=== PATIENT | female | born 1940 | race Native Hawaiian/Other Pacific Islander ===

== ENCOUNTER 2017-03-06 07:44 | Emergency (ER) | payer MEDICARE, MEDICAID ==
[2017-03-06 08:01] VITALS: O2SAT 97
[2017-03-06] MEDS ORDERED: Dexamethasone 4 mg/1 ml IM STA (09:03)
[2017-03-06] MEDS ORDERED: Dexamethasone 4 mg/1 ml ONE (09:16)
--- NOTE | 2017-03-06 09:43 | C.PDOC ---
History Of Present Illness 76-year-old female, presents to the emergency department with complaints of joint pain. Patient states she has been experiencing pain in B/L knees for many years, but over the past three days, the pain has worsened, and associated with swelling. She also notes swelling and pain in her hands, elbows and shoulders. Additionally, she states that it has become very difficult for her to walk, resulting in her coming to the ED for evaluation. Denies chest pain, nausea/ vomiting, shortness of breath, or any other associated symptoms. No other complaints at this time. Time Seen by Provider: 03/06/17 08:11 Chief Complaint (Nursing): Upper Extremity Problem/Injury History Per: Patient History/Exam Limitations: no limitations Onset/Duration Of Symptoms: Days Current Symptoms Are (Timing): Still Present Severity: Moderate Past Medical History Reviewed: Historical Data, Nursing Documentation, Vital Signs Vital Signs: Last Vital Signs Temp 98.4 F 03/06/17 10:50 Pulse 79 03/06/17 10:50 Resp 18 03/06/17 10:50 BP 127/77 03/06/17 10:50 Pulse Ox 97 03/06/17 10:50 - Medical History PMH: Arthritis, Diabetes, HTN, Hypercholesterolemia Denies: Pulmonary Embolism, Chronic Kidney Disease, Sleep Apnea - [facility] Procedures ESOPHAGOGASTRODUODENOSCOPY [EGD] W/CLOSED BIOPSY (01/17/00) Family History: States: No Known Family Hx - Social History Hx Alcohol Use: No Hx Substance Use: No - Immunization History Hx Tetanus Toxoid Vaccination: No Hx Influenza Vaccination: No Hx Pneumococcal Vaccination: No Review Of Systems Except As Marked, All Systems Reviewed And Found Negative. Constitutional: Positive for: Other (pain to knees, hands and right elbow). Negative for: Fever Cardiovascular: Negative for: Chest Pain Respiratory: Negative for: Shortness of Breath Gastrointestinal: Negative for: Nausea, Vomiting Neurological: Negative for: Weakness, Numbness, Headache, Dizziness Physical Exam - Physical Exam Appears: Non-toxic, No Acute Distress, Other (moderate pain) Skin: Warm, Dry Head: Atraumatic, Normacephalic Eye(s): bilateral: Normal Inspection, PERRL, EOMI Nose: Normal Oral Mucosa: Moist Neck: Normal ROM, Supple Chest: Symmetrical, No Tenderness Cardiovascular: Rhythm Regular, No Friction Rub, No Murmur Respiratory: Normal Breath Sounds, No Accessory Muscle Use, No Rales, No Rhonchi , No Wheezing Gastrointestinal/Abdominal: Soft, No Tenderness Extremity: No Tenderness, Capillary Refill (< 2 sec), Other (B/L knees: moderate swelling. No rashes, deformity or erythema. No warmth. Minimal swelling to right elbow. B/L hands: w/ swelling, and tenderness. No warmth or deformity to second and third mcp joints.) Pulses: Left Radial: Normal, Right Radial: Normal, Left Dorsalis Pedis: Normal, Right Dorsalis Pedis: Normal Neurological/Psych: Oriented x3, Normal Speech, Normal Motor, Normal Sensation ED Course And Treatment O2 Sat by Pulse Oximetry: 97 (on RA) Pulse Ox Interpretation: Normal Medical Decision Making Medical Decision Making: Plan * Decadron, Tylenol and Toradol * Reassess and Disposition On re-exam, the patient reports improvement of pain but has diffculty walking secondary to the pain. physical therapy eval was performed who states that the patient is ambulatory with a walker and is safe for discharge. Rx for walker was given. Disposition - Disposition Referrals: Maday Quevedo MD [Staff Provider] - Disposition: HOME/ ROUTINE Disposition Time: 10:31 Condition: GOOD Additional Instructions: Follow up with the medical doctor within 1-2 days, Return if worsened. Prescriptions: Acetaminophen [Tylenol] 325 mg PO Q6 PRN #30 tab PRN Reason: Pain, Mild (1-3) Naproxen [Naprosyn] 500 mg PO BID #20 tab traMADol [Ultram] 25 mg PO TID PRN #15 tab PRN Reason: Pain, Moderate (4-7) Walker [Rolling Walker] 1 dev XX PRN PRN #1 dev PRN Reason: walking Instructions: Arthritis (ED) - Clinical Impression Clinical Impression: Joint pain, Arthritis - Scribe Statement The provider has reviewed the documentation as recorded by the Scribe (Juanjose Ryder) All medical record entries made by the Scribe were at my direction and personally dictated by me. I have reviewed the chart and agree that the record accurately reflects my personal performance of the history, physical exam, medical decision making, and the department course for this patient. I have also personally directed, reviewed, and agree with the discharge instructions and disposition.
[2017-03-06 10:50] VITALS: BP 127/77; PULSE 79; RESP 18; TEMP 98.4
== END 2017-03-06 11:45 | disposition home or self-care (01) ==
LOC: C.ER 07:44
DX: M17.0 Bilateral primary osteoarthritis of knee (principal)
CPT/HCPCS: 96372; 97116; 97161; 99283; G8978; G8979; G8980; J1100; J1885

== ENCOUNTER 2017-03-30 13:36 | Inpatient (IN) | payer MEDICARE, MEDICAID ==
[2017-03-30 13:46] VITALS: RESP 20
[2017-03-30 13:51] VITALS: BMI 26.5
[2017-03-30 15:28] LABS: BASO % 0.4 % (0.0-2.0); EOS # 0.3 K/uL (0.0-0.7); EOS % 3.7 % (0.0-4.0); HEMATOCRIT 35.5 % (34.0-47.0); LYMPH # 2.9 K/uL (1.0-4.3); LYMPH % 33.5 % (20.0-40.0); MEAN CELL VOLUME 88.2 fL (81.0-99.0); MEAN CORPUSCULAR HEMOGLOBIN 28.4 pg (27.0-31.0); MEAN CORPUSCULAR HGB CONC 32.2 g/dL (33.0-37.0); MONO # 0.7 K/uL (0.0-0.8); MONO % 7.8 % (0.0-10.0); NRBC % 0.1 % (0.0-2.0); RED CELL DISTRIBUTION WIDTH 13.4 % (11.5-14.5); WHITE BLOOD COUNT 8.5 K/uL (4.8-10.8)
[2017-03-30 15:36] LABS: CHLORIDE 101 mmol/L (98-107); POTASSIUM 4.2 mmol/L (3.6-5.2); SODIUM 134 mmol/L (132-148)
[2017-03-30 15:38] LABS: BILIRUBIN,TOTAL 0.5 mg/dL (0.2-1.3); CARBON DIOXIDE 25 mmol/L (22-30); GFR AFRICAN-AMERICAN > 60
[2017-03-30 15:39] LABS: ALKALINE PHOSPHATASE 61 U/L (38-126); ALT/SGPT 28 U/L (9-52); AST/SGOT 19 U/L (14-36); BLOOD UREA NITROGEN 13 mg/dL (7-17); CALCIUM 9.1 mg/dl (8.6-10.4); GLUCOSE,RANDOM 139 mg/dL (65-105); PHOSPHOROUS 4.6 mg/dL (2.5-4.5); TOTAL PROTEIN 6.5 g/dL (6.3-8.3)
[2017-03-30 15:40] LABS: MAGNESIUM 1.9 mg/dL (1.6-2.3)
[2017-03-30 15:45] LABS: INR 1.1
[2017-03-30 16:19] LABS: VENOUS BLOOD GAS BASE EXCESS 2.4 mmol/L (0.0-2.0); VENOUS BLOOD GAS PCO2 42 mmHg (40-60); VENOUS BLOOD PH 7.42 (7.32-7.43)
--- NOTE | 2017-03-30 16:37 | RAD ---
HISTORY: c/o generalized body aches COMPARISON: Chest x-ray performed 07/01/15 TECHNIQUE: Chest PA and lateral FINDINGS: LUNGS: 3 mm right upper lobe calcified granuloma. No focal consolidation. Please note that chest x-ray has limited sensitivity for the detection of pulmonary masses. PLEURA: No significant pleural effusion identified. No definite pneumothorax . CARDIOVASCULAR: Heart size appears within normal limits. Ectatic aorta. OSSEOUS STRUCTURES: Osseous demineralization. Degenerative changes. VISUALIZED UPPER ABDOMEN: Unremarkable. OTHER FINDINGS: None. IMPRESSION: Tiny calcified granuloma, right upper lobe.
--- NOTE | 2017-03-30 16:47 | RAD ---
PROCEDURE: Bilateral Knee Radiographs. HISTORY: c/o bilat knee pain COMPARISON: None. FINDINGS: BONES: Right Knee: Diffuse osteophytosis. No fracture. Left Knee: Diffuse osteophytosis. No fracture. JOINTS: Right Knee: osteoarthritis. Left knee: osteoarthritis. SOFT TISSUES: Right Knee: Normal. Left Knee: Normal. JOINT EFFUSION: Right Knee: Yes Left Knee: Yes OTHER FINDINGS: None. IMPRESSION: Tricompartmental joint space narrowing in each knee. Findings are most pronounced in the right knee. The right medial femoral tibial and right patellofemoral joint space narrowing osteophytosis is most pronounced. Bilateral suprapatellar joint effusions suggested. No fracture noted
[2017-03-30] MEDS: Sodium Chloride 0.9% 1,000 ML IV ONE ×2 (17:15→18:05)
[2017-03-30 17:27] LABS: RBC URINE 1 /hpf (0-3); TRANSITIONAL EPITHIAL < 1 /hpf (0-3); URINE BACTERIA OCC (<OCC); URINE BILIRUBIN NEGATIVE (NEGATIVE); URINE BLOOD NEGATIVE (NEGATIVE); URINE COLOR Yellow (YELLOW); URINE GLUCOSE (UA) 1+ mg/dL (Normal); URINE KETONE NEGATIVE (NEGATIVE); URINE PROTEIN NEGATIVE (NEGATIVE); URINE UROBILINOGEN NORMAL mg/dL (0.2-1.0); WBC URINE 7 /hpf (0-5)
--- NOTE | 2017-03-30 17:28 | C.PDOC ---
History Of Present Illness Patient is a 76 y/o female, whose PMHx includes diabetes, HTN, RA, and hypercholestrolemia, that is sent to the ED by Dr. Quevedo for evaluation of body aches, and pain to bilateral wrist, arm, elbow, and knee for the last month. Patient states her knees feel warm to touch. Notes that she cannot walk past 3 to 4 steps without significant pain. States her symptoms are worse with standing , walking, and sitting. Patient is failing outpatient treatment of her pain for her arthritis. Otherwise, denies any chest pain, shortness of breath, n/v/d, abdominal pain, fever, chills, or any other associated symptoms at this time. Time Seen by Provider: 03/30/17 14:10 Chief Complaint (Nursing): Medical Clearance History Per: Patient History/Exam Limitations: no limitations Onset/Duration Of Symptoms: Days (1 month) Current Symptoms Are (Timing): Still Present Recent travel outside of the [place]: No Additional History Per: Patient Past Medical History Reviewed: Historical Data, Nursing Documentation, Vital Signs Vital Signs: Last Vital Signs Temp 97.8 F 04/03/17 07:53 Pulse 73 04/03/17 12:51 Resp 20 04/03/17 07:53 BP 110/69 04/03/17 07:53 Pulse Ox 95 04/03/17 07:53 - Medical History PMH: Arthritis, Diabetes, HTN, Hypercholesterolemia, Rheumatoid Arthritis - [facility] Procedures ESOPHAGOGASTRODUODENOSCOPY [EGD] W/CLOSED BIOPSY (01/17/00) Family History: States: Other Other Family History: Mother and sister with history of stomach cancer - Social History Hx Tobacco Use: No Hx Alcohol Use: No Hx Substance Use: No - Immunization History Hx Tetanus Toxoid Vaccination: No Hx Influenza Vaccination: No Hx Pneumococcal Vaccination: No Review Of Systems Except As Marked, All Systems Reviewed And Found Negative. Constitutional: Positive for: Other (body pains). Negative for: Fever, Chills Cardiovascular: Negative for: Chest Pain, Palpitations, Light Headedness Respiratory: Negative for: Shortness of Breath Gastrointestinal: Negative for: Nausea, Vomiting, Abdominal Pain Musculoskeletal: Positive for: Arm Pain (b/l arm, elbow pain), Hand Pain (b/l wrist pain), Leg Pain (b/l knee pain). Negative for: Neck Pain, Shoulder Pain, Back Pain Skin: Negative for: Rash Neurological: Negative for: Weakness, Numbness, Headache, Dizziness Physical Exam - Physical Exam Appears: Non-toxic, No Acute Distress Skin: Normal Color, Warm, Dry, No Rash Head: Atraumatic, Normacephalic Eye(s): bilateral: Normal Inspection Nose: Normal Oral Mucosa: Moist Lips: Normal Appearing Neck: Normal ROM, Supple Chest: Symmetrical Cardiovascular: Rhythm Regular, No Murmur Respiratory: Normal Breath Sounds, No Accessory Muscle Use, No Rales, No Rhonchi , No Wheezing Gastrointestinal/Abdominal: Normal Exam, Soft, No Tenderness Back: Normal Inspection, No Paraspinal Tenderness Extremity: No Normal ROM (pain with ROM of b/l knee, wrist, arm, elbow), Tenderness (b/l knee, arm, wrist, and elbow), No Pedal Edema, Capillary Refill ( <2 sec.), No Deformity, No Swelling (no redness, swelling, or warmth to joints) Extremity: Bilateral: Atraumatic Pulses: Left Radial: Normal, Right Radial: Normal Neurological/Psych: Oriented x3, Normal Speech, Normal Cognition, Normal Motor, Normal Sensation ED Course And Treatment - Laboratory Results Result Diagrams: 04/02/17 08:13 03/31/17 07:09 O2 Sat by Pulse Oximetry: 99 (on RA) Pulse Ox Interpretation: Normal Medical Decision Making Medical Decision Making: Initial Impression: Rheumatoid Arthritis with significant pain Initial Plan: Will give pain medication and check labs Progress Note: Pt still in pain. I discussed the case with Dr. Quevedo--recommends hospitalization (Observation) under his service due to the intractable pain Disposition - Disposition Disposition: HOSPITALIZED Disposition Time: 17:26 Condition: FAIR - Clinical Impression Clinical Impression: Rheumatoid arthritis flare, Intractable pain - Scribe Statement The provider has reviewed the documentation as recorded by the Laurenibmika Hernandez All medical record entries made by the Laurenibmika were at my direction and personally dictated by me. I have reviewed the chart and agree that the record accurately reflects my personal performance of the history, physical exam, medical decision making, and the department course for this patient. I have also personally directed, reviewed, and agree with the discharge instructions and disposition. Decision To Admit - Pt Status Changed To: Hospital Disposition Of: Observation - . Bed Request Type: Regular Admitting Physician: Maday Quevedo Patient Diagnosis: Rheumatoid arthritis flare, Intractable pain
[2017-03-30 17:31] LABS: URINE LEUKOCYTE ESTERASE 1+ Leu/uL (Negative)
[2017-03-30] MEDS ORDERED: Sodium Chloride 0.9% 1,000 ML ONE (17:51)
--- NOTE | 2017-03-30 18:00 | CP.PCM.HP ---
History of Present Illness - History of Present Illness History of Present Illness: A 76 year old female with history of rheumatoid arthritis, Diabetes, HTN, Hypercholesterolemia came for severe general body ache and polyarthralgia, especially knee and shoulder joints. She is normally going to a day care center, however, recently she was unable to go out because of the pain. She could not even walk for more than two steps. She had recently MRI's of knees at a pain clinic. The pain was so unbearable, and she could not go out, so she came to ER. She denies fever, vomiting, nausea. shortness of breath. Present on Admission - Present on Admission Any Indicators Present on Admission: No History of DVT/PE: No History of Uncontrolled Diabetes: No Urinary Catheter: No Decubitus Ulcer Present: No Review of Systems - Constitutional Constitutional: Weakness. absent: Anorexia, Chills - Cardiovascular Cardiovascular: absent: Chest Pain, Chest Pain at Rest, Claudication, Diaphoresis - Respiratory Respiratory: absent: Cough, Dyspnea - Gastrointestinal Gastrointestinal: absent: Abdominal Pain, Melena, Nausea - Genitourinary Genitourinary: absent: Change in Urinary Stream, Difficulty Urinating - Musculoskeletal Musculoskeletal: Arthralgias (pain on both arms, elbows, wrists, knees, no back pain), Back Pain, Muscle Cramps - Integumentary Integumentary: absent: Swelling Past Patient History - Infectious Disease Hx of Infectious Diseases: None - Tetanus Immunizations Tetanus Immunization: Unknown - Past Medical History & Family History Past Medical History?: Yes - Past Social History Smoking Status: Never Smoked Chewing Tobacco Use: No Cigar Use: No Alcohol: None Drugs: Denies Home Situation {Lives}: Alone Domestic Violence: Negative - CARDIAC Hx Hypercholesterolemia: Yes Hx Hypertension: Yes - PULMONARY Hx Pulmonary Embolism: No Hx Sleep Apnea: No - NEUROLOGICAL Hx Neurological Disorder: No - HEENT Hx HEENT Problems: No - RENAL Hx Chronic Kidney Disease: No - ENDOCRINE/METABOLIC Hx Endocrine Disorders: Yes Hx Diabetes Mellitus Type 2: Yes - HEMATOLOGICAL/ONCOLOGICAL Hx Blood Disorders: No - INTEGUMENTARY Hx Dermatological Problems: No - MUSCULOSKELETAL/RHEUMATOLOGICAL Hx Arthritis: Yes - GASTROINTESTINAL Hx Gastrointestinal Disorders: No - GENITOURINARY/GYNECOLOGICAL Hx Genitourinary Disorders: No - PSYCHIATRIC Hx Substance Use: No - SURGICAL HISTORY Hx Surgeries: No - ANESTHESIA Hx Anesthesia: No Hx Anesthesia Reactions: No Meds Allergies/Adverse Reactions: Allergies Allergy/AdvReac Type Severity Reaction Status Date / Time No Known Allergies Allergy Verified 03/30/17 13:50 Physical Exam - Head Exam Head Exam: NORMAL INSPECTION - Neck Exam Neck exam: Positive for: Normal Inspection - Respiratory Exam Respiratory Exam: Clear to Auscultation Bilateral, NORMAL BREATHING PATTERN - Cardiovascular Exam Cardiovascular Exam: REGULAR RHYTHM, +S1, +S2. absent: Systolic Murmur - GI/Abdominal Exam GI & Abdominal Exam: Normal Bowel Sounds. absent: Guarding, Hypoactive Bowel Sounds, Organomegaly Results - Vital Signs Recent Vital Signs: Last Vital Signs Temp 98 F 03/30/17 13:43 Pulse 74 03/30/17 13:43 Resp 20 03/30/17 13:43 BP 117/81 03/30/17 13:43 Pulse Ox 99 03/30/17 17:28 - Labs Result Diagrams: 03/30/17 15:22 03/31/17 07:09 Labs: Laboratory Results - last 24 hr 03/30/17 17:14 Urine Color Yellow Urine Clarity Clear Urine pH 6.0 Ur Specific [place] 1.010 Urine Protein Negative Urine Glucose (UA) 1+ Urine Ketones Negative Urine Blood Negative Urine Nitrate Negative Urine Bilirubin Negative Urine Urobilinogen Normal Ur Leukocyte Esterase 1+ H Urine WBC (Auto) 7 H Urine RBC (Auto) 1 Ur Squamous Epith Cells < 1 Ur Transition Epith Cell < 1 Urine Bacteria Occ H Assessment & Plan - Assessment and Plan (Free Text) Assessment: A 76 year old female with history of rheumatoid arthritis, HTN, DM, elevated cholesterol came with severe joint pain on knees, shoulders. RA flare up intractable pain syndrome Plan: iv fluid rest iv steroids DVT prophylaxis Rheumatology consult Diabetic care PT evaluation - Date & Time Date: 03/30/17 Time: 18:06
[2017-03-30] MEDS ORDERED: Sodium Chloride 0.9% 1,000 ML IV ONE (19:36)
[2017-03-30] MEDS ORDERED: Albuterol HFA 90 mcg/actuation (8 g) INH PRN (19:37)
[2017-03-30] MEDS: (Novolog) Insulin Aspart, Recombinant 100 u/ml 10 ml vial SC SCH (22:11)
[2017-03-31 07:36] LABS: CHLORIDE 102 mmol/L (98-107)
[2017-03-31 07:37] LABS: SODIUM 133 mmol/L (132-148)
[2017-03-31 07:39] LABS: ALB/GLOB RATIO 0.9 (1.0-2.1); ALKALINE PHOSPHATASE 59 U/L (38-126); ALT/SGPT 26 U/L (9-52); AST/SGOT 19 U/L (14-36); BILIRUBIN,TOTAL 0.5 mg/dL (0.2-1.3); BLOOD UREA NITROGEN 16 mg/dL (7-17); CARBON DIOXIDE 22 mmol/L (22-30); CHOLESTEROL 133 mg/dL (0-199); GFR AFRICAN-AMERICAN > 60; GLUCOSE,RANDOM 293 mg/dL (65-105); TOTAL PROTEIN 6.1 g/dL (6.3-8.3)
[2017-03-31 07:40] LABS: CALCIUM 8.5 mg/dl (8.6-10.4)
--- NOTE | 2017-03-31 07:50 | CP.PCM.PN ---
Subjective - Date & Time of Evaluation Date of Evaluation: 03/31/17 Time of Evaluation: 07:46 - Subjective Subjective: pain on shoulders more on right side pain on knees can not make a fist of both hands Objective - Vital Signs/Intake and Output Vital Signs (last 24 hours): Temp Pulse Resp BP Pulse Ox 97.7 F 91 H 20 115/74 96 03/31/17 07:29 03/31/17 07:29 03/31/17 07:29 03/31/17 07:29 03/31/17 07:29 Intake and Output: 03/31/17 03/31/17 06:59 18:59 Intake Total 640 Balance 640 - Medications Medications: Current Medications Acetaminophen (Tylenol 325mg Tab) 650 mg PO Q6 PRN PRN Reason: Pain, moderate (4-7) Albuterol (Ventolin Hfa 90 Mcg/Actuation (8 G)) 1 puff INH RQ6 PRN PRN Reason: Wheezing Folic Acid (Folic Acid) 1 mg PO DAILY [facility] Heparin Sodium (Porcine) (Heparin) 5,000 units SC Q12 [facility] Last Admin: 03/30/17 22:10 Dose: 5,000 units Insulin Aspart (Novolog) 0 unit SC ACHS [facility] PRN Reason: Protocol Last Admin: 03/30/17 22:11 Dose: Not Given Ketorolac Tromethamine (Toradol) 15 mg IVP Q8 PRN PRN Reason: Pain, severe (8-10) Losartan Potassium (Cozaar) 50 mg PO DAILY [facility] Metformin HCl (Glucophage) 500 mg PO BIDCC [facility] Methotrexate (Methotrexate) 2.5 mg PO QWK [facility] Methylprednisolone (Solu-Medrol) 80 mg IV Q8 [facility] Last Admin: 03/31/17 05:20 Dose: 80 mg Pantoprazole Sodium (Protonix Ec Tab) 40 mg PO DAILY [facility] Pneumococcal Polyvalent Vaccine (Pneumovax 23 Vaccine) 0.5 ml IM .ONCE ONE Stop: 03/31/17 10:01 Sitagliptin Phosphate (Januvia) 50 mg PO DAILY [facility] - Labs Labs: 03/31/17 07:09 PT 12.0 SECONDS (9.7-12.2) 03/30/17 15:22 INR 1.1 03/30/17 15:22 APTT 33 SECONDS (21-34) 03/30/17 15:22 - Head Exam Head Exam: NORMAL INSPECTION - Neck Exam Neck Exam: Normal Inspection - Respiratory Exam Respiratory Exam: NORMAL BREATHING PATTERN - Cardiovascular Exam Cardiovascular Exam: REGULAR RHYTHM. absent: Tachycardia - GI/Abdominal Exam GI & Abdominal Exam: Soft, Normal Bowel Sounds. absent: Tenderness - Extremities Exam Extremities Exam: Full ROM, Joint Swelling (knee joints) - Skin Skin Exam: Normal Color Assessment and Plan - Assessment and Plan (Free Text) Assessment: A 76 year old female who has a history of RA, knee OA, DM, HTN came for severe joint pain for one month. She was unable to walk for two steps. She has been going to a pain management clinic and had an acupuncture DM on steroid iv toradol prn for pain control high ESR and CRP Plan: continue iv steroids insulin sliding scale rheumatology consult X-rays of shoulders and hands
[2017-03-31] MEDS: Pantoprazole 40 mg EC Tab PO SCH (09:53)
[2017-03-31] MEDS: (Novolog) Insulin Aspart, Recombinant 100 u/ml 10 ml vial SC SCH ×4 (09:54→21:36)
[2017-03-31] MEDS ORDERED: Pneumococcal 23-Valent Vaccine IM ONE (10:00)
--- NOTE | 2017-03-31 11:41 | RAD ---
PROCEDURE: Radiographs of both shoulders HISTORY: shoulder pain COMPARISON: No prior. FINDINGS: BONES: Right shoulder: Normal. No fracture. Left shoulder: Normal. No fracture. JOINTS: Right shoulder: Normal glenohumeral articulation. Minimal acromioclavicular degenerative arthritis. Left shoulder: Normal glenohumeral articulation. Minimal acromioclavicular degenerative arthritis. Small round smooth corticated ossific density adjacent to superior aspect of the distal left clavicle, uncertain significance. SOFT TISSUES: Right shoulder: Grossly unremarkable. Right shoulder: Grossly unremarkable. OTHER FINDINGS: None. IMPRESSION: No fracture. Minimal bilateral acromioclavicular degenerative arthritis.
--- NOTE | 2017-03-31 11:44 | RAD ---
PROCEDURE: Bilateral hand radiographs. HISTORY: RA evaluation COMPARISON: None. FINDINGS: BONES: Right Hand: Normal. No osteoarthritic changes. Left Hand: Normal. No osteoarthritic changes. JOINTS: Right Hand: Minimal marginal erosion radial aspect distal end right 2nd middle phalanx. No other articular erosions are appreciated. Remaining joint spaces and articular surfaces preserved. Left Hand: Normal. SOFT TISSUES: Right Hand: Normal. Left Hand: Normal. OTHER FINDINGS: None. IMPRESSION: Minimal nonspecific articular erosion at the radial distal aspect right 2nd middle phalanx. Remainder of the examination unremarkable.
--- NOTE | 2017-03-31 12:52 | CARD ---
APPROVED REPORT EKG Measurement Heart [id number] <Conclusion> Normal sinus rhythm Normal ECG
[2017-04-01] MEDS: (Novolog) Insulin Aspart, Recombinant 100 u/ml 10 ml vial SC SCH ×4 (07:30→21:50)
[2017-04-01 09:18] LABS: AST/SGOT 25 U/L (14-36)
[2017-04-01] MEDS: Pantoprazole 40 mg EC Tab PO SCH (09:35)
[2017-04-01] MEDS ORDERED: MethylPREDNISolone 40 mg Vial IVP STA (15:56)
--- NOTE | 2017-04-01 15:56 | CP.PCM.PN ---
Subjective - Date & Time of Evaluation Date of Evaluation: 04/01/17 Time of Evaluation: 15:53 - Subjective Subjective: knee pain lessened shoulder pain less still unable to walk Objective - Vital Signs/Intake and Output Vital Signs (last 24 hours): Temp Pulse Resp BP Pulse Ox 98.8 F 79 20 106/64 96 04/01/17 07:52 04/01/17 07:52 04/01/17 07:52 04/01/17 07:52 04/01/17 07:52 Intake and Output: 04/01/17 04/01/17 06:59 18:59 Intake Total 300 Balance 300 - Medications Medications: Current Medications Acetaminophen (Tylenol 325mg Tab) 650 mg PO Q6 PRN PRN Reason: Pain, moderate (4-7) Albuterol (Ventolin Hfa 90 Mcg/Actuation (8 G)) 1 puff INH RQ6 PRN PRN Reason: Wheezing Folic Acid (Folic Acid) 1 mg PO DAILY [facility] Last Admin: 04/01/17 09:35 Dose: 1 mg Heparin Sodium (Porcine) (Heparin) 5,000 units SC Q12 [facility] Last Admin: 04/01/17 09:36 Dose: 5,000 units Insulin Aspart (Novolog) 0 unit SC ACHS [facility] PRN Reason: Protocol Last Admin: 04/01/17 11:37 Dose: 6 unit Ketorolac Tromethamine (Toradol) 15 mg IVP Q8 PRN PRN Reason: Pain, severe (8-10) Losartan Potassium (Cozaar) 50 mg PO DAILY [facility] Last Admin: 04/01/17 09:36 Dose: 50 mg Metformin HCl (Glucophage) 500 mg PO BIDCC [facility] Last Admin: 04/01/17 08:00 Dose: 500 mg Methotrexate (Methotrexate) 15 mg PO QWK [facility] Last Admin: 04/01/17 09:37 Dose: 15 mg Methylprednisolone (Solu-Medrol) 80 mg IV Q8 [facility] Last Admin: 04/01/17 14:19 Dose: 80 mg Pantoprazole Sodium (Protonix Ec Tab) 40 mg PO DAILY [facility] Last Admin: 04/01/17 09:35 Dose: 40 mg Sitagliptin Phosphate (Januvia) 50 mg PO DAILY [facility] Last Admin: 04/01/17 09:36 Dose: 50 mg - Labs Labs: PT 12.0 SECONDS (9.7-12.2) 03/30/17 15:22 INR 1.1 03/30/17 15:22 APTT 33 SECONDS (21-34) 03/30/17 15:22 - Constitutional Appears: Non-toxic - Neck Exam Neck Exam: Normal Inspection - Respiratory Exam Respiratory Exam: NORMAL BREATHING PATTERN - Cardiovascular Exam Cardiovascular Exam: REGULAR RHYTHM. absent: Murmur - Extremities Exam Extremities Exam: Joint Swelling (knee joints, not red) Assessment and Plan - Assessment and Plan (Free Text) Assessment: 76 year old female with history of DM, HTN, RA on methotrexate came for increased pain on knees, inability to move for a month. Rheumatoid arthritis flare up. X-ray of shoulder: unremarkable X-ray of hands: rt 3rd MP joint, radial side erosion Plan: taper iv steroids. 80 mg solumedrol from every 8 to every 12 hours. glucose control rheumatology consult physical therapy follow up labs
[2017-04-01] MEDS: Oxycodone/Acetaminophen 5/325 mg Tab PO PRN (18:44)
[2017-04-01] MEDS ORDERED: MethylPREDNISolone 40 mg Vial IVP SCH (22:00)
--- NOTE | 2017-04-01 22:15 | CP.PCM.CON ---
History of Present Illness - History of Present Illness History of Present Illness: 76 year old female with severe knee pain and stiffness admitted thru the ER at [facility]. Patient has suffered from long standing rheumatoid arthritis, diabetes mellitus, hyperlipidemia and ASHD. Patient is presently on metothrexate. Ms Meza was examined and a medical history was obtained. Lab studies and a quantiferon gold exam requested. Review of Systems - Review of Systems Systems not reviewed;Unavailable: Other (knee pain) - Constitutional Constitutional: Fatigue - EENT Eyes: Dry Eye - Menstruation Menstruation: Post Menopausal - Musculoskeletal Musculoskeletal: Arthralgias - Integumentary Integumentary: Change in Hair - Psychiatric Psychiatric: Depression Past Patient History - Infectious Disease Hx of Infectious Diseases: None - Tetanus Immunizations Tetanus Immunization: Unknown - Past Medical History & Family History Past Medical History?: Yes - Past Social History Smoking Status: Never Smoked Chewing Tobacco Use: No Cigar Use: No Alcohol: None Drugs: Denies Home Situation {Lives}: Alone Domestic Violence: Negative - CARDIAC Hx Hypertension: Yes - PULMONARY Hx Pulmonary Embolism: No Hx Sleep Apnea: No - NEUROLOGICAL Hx Neurological Disorder: No - HEENT Hx HEENT Problems: No - RENAL Hx Chronic Kidney Disease: No - ENDOCRINE/METABOLIC Hx Diabetes Mellitus Type 2: Yes - HEMATOLOGICAL/ONCOLOGICAL Hx Blood Disorders: No - INTEGUMENTARY Hx Dermatological Problems: No - MUSCULOSKELETAL/RHEUMATOLOGICAL Hx Arthritis: Yes (BACK) Hx Rheumatoid Arthritis: Yes (SH, KNEES) - GASTROINTESTINAL Hx Gastrointestinal Disorders: No - GENITOURINARY/GYNECOLOGICAL Hx Genitourinary Disorders: No - PSYCHIATRIC Hx Substance Use: No - SURGICAL HISTORY Hx Surgeries: No - ANESTHESIA Hx Anesthesia: No Hx Anesthesia Reactions: No Meds Allergies/Adverse Reactions: Allergies Allergy/AdvReac Type Severity Reaction Status Date / Time No Known Allergies Allergy Verified 03/30/17 13:50 - Medications Medications: Current Medications Acetaminophen (Tylenol 325mg Tab) 650 mg PO Q6 PRN PRN Reason: Pain, moderate (4-7) Albuterol (Ventolin Hfa 90 Mcg/Actuation (8 G)) 1 puff INH RQ6 PRN PRN Reason: Wheezing Folic Acid (Folic Acid) 1 mg PO DAILY [facility] Last Admin: 04/01/17 09:35 Dose: 1 mg Heparin Sodium (Porcine) (Heparin) 5,000 units SC Q12 [facility] Last Admin: 04/01/17 21:50 Dose: 5,000 units Insulin Aspart (Novolog) 0 unit SC ACHS [facility] PRN Reason: Protocol Last Admin: 04/01/17 21:50 Dose: 3 unit Losartan Potassium (Cozaar) 50 mg PO DAILY [facility] Last Admin: 04/01/17 09:36 Dose: 50 mg Metformin HCl (Glucophage) 500 mg PO BIDCC [facility] Last Admin: 04/01/17 17:00 Dose: 500 mg Methotrexate (Methotrexate) 15 mg PO QWK [facility] Last Admin: 04/01/17 09:37 Dose: 15 mg Methylprednisolone (Solu-Medrol) 80 mg IVP Q12 [facility] Last Admin: 04/01/17 21:51 Dose: 80 mg Oxycodone/Acetaminophen (Percocet 5/325 Mg Tab) 1 tab PO Q4H PRN PRN Reason: Pain, moderate (4-7) Stop: 04/04/17 16:14 Last Admin: 04/01/17 18:44 Dose: 1 tab Pantoprazole Sodium (Protonix Ec Tab) 40 mg PO DAILY [facility] Last Admin: 04/01/17 09:35 Dose: 40 mg Sitagliptin Phosphate (Januvia) 50 mg PO DAILY [facility] Last Admin: 04/01/17 09:36 Dose: 50 mg Physical Exam - Constitutional Appears: Chronically Ill - Head Exam Head Exam: NORMOCEPHALIC - Eye Exam Eye Exam: Normal appearance Pupil Exam: NORMAL ACCOMODATION - ENT Exam ENT Exam: Normal Exam - Neck Exam Neck exam: Positive for: Normal Inspection - Respiratory Exam Respiratory Exam: NORMAL BREATHING PATTERN - Cardiovascular Exam Cardiovascular Exam: REGULAR RHYTHM - GI/Abdominal Exam GI & Abdominal Exam: Normal Bowel Sounds - Rectal Exam Rectal Exam: Deferred - Exam External exam: NORMAL EXTERNAL EXAM - Extremities Exam Extremities exam: Positive for: tenderness - Back Exam Back exam: NORMAL INSPECTION - Neurological Exam Neurological exam: Oriented x3 - Psychiatric Exam Psychiatric exam: Depressed - Skin Skin Exam: Dry Results - Vital Signs Recent Vital Signs: Last Vital Signs Temp 97.5 F L 04/01/17 16:00 Pulse 78 04/01/17 16:00 Resp 20 04/01/17 16:00 BP 123/74 04/01/17 16:00 Pulse Ox 97 04/01/17 16:00 - Labs Result Diagrams: 03/30/17 15:22 03/31/17 07:09 Labs: Laboratory Results - last 24 hr 04/01/17 04/01/17 16:32 21:19 POC Glucose (mg/dL) 251 H 363 H Assessment & Plan (1) Diabetes mellitus Status: Acute (2) Hyperlipidemia Status: Acute (3) Rheumatoid arthritis flare Status: Acute
[2017-04-02 08:21] LABS: HEMATOCRIT 31.5 % (34.0-47.0); LYMPH # 1.5 K/uL (1.0-4.3); LYMPH % 13.3 % (20.0-40.0); MEAN CELL VOLUME 87.2 fL (81.0-99.0); MEAN CORPUSCULAR HEMOGLOBIN 29.3 pg (27.0-31.0); MEAN CORPUSCULAR HGB CONC 33.6 g/dL (33.0-37.0); MEAN PLATELET VOLUME 7.2 fL (7.2-11.7); MONO # 0.2 K/uL (0.0-0.8); MONO % 2.2 % (0.0-10.0); RED CELL DISTRIBUTION WIDTH 13.1 % (11.5-14.5); WHITE BLOOD COUNT 11.1 K/uL (4.8-10.8)
[2017-04-02] MEDS: (Novolog) Insulin Aspart, Recombinant 100 u/ml 10 ml vial SC SCH ×4 (08:30→22:44)
[2017-04-02] MEDS: Pantoprazole 40 mg EC Tab PO SCH (10:01)
[2017-04-02] MEDS: MethylPREDNISolone 40 mg Vial IVP SCH (10:01)
--- NOTE | 2017-04-02 10:31 | RAD ---
PROCEDURE: Pelvis bilateral hips 04/01/2017. HISTORY: Unable to walk COMPARISON: No prior study available comparison. FINDINGS: The current study reveals no evidence of acute displaced fracture nor dislocation. Both femoral heads are appropriately located within the respective acetabula. Joint spaces are relatively preserved without significant osteoarthritis. SI joints are intact and patent. . There may also be some vacuum phenomena within both SI joints. Mild degenerative spondylosis lower lumbosacral spine. . Impression: No acute fracture seen. .
--- NOTE | 2017-04-02 12:40 | CP.PCM.PN ---
Subjective - Date & Time of Evaluation Date of Evaluation: 04/02/17 Time of Evaluation: 12:37 - Subjective Subjective: less pain on knee joint and finger joint high glucose Objective - Vital Signs/Intake and Output Vital Signs (last 24 hours): Temp Pulse Resp BP Pulse Ox 97.6 F 73 20 125/75 97 04/02/17 07:37 04/02/17 07:37 04/02/17 07:37 04/02/17 07:37 04/02/17 07:37 - Medications Medications: Current Medications Acetaminophen (Tylenol 325mg Tab) 650 mg PO Q6 PRN PRN Reason: Pain, moderate (4-7) Albuterol (Ventolin Hfa 90 Mcg/Actuation (8 G)) 1 puff INH RQ6 PRN PRN Reason: Wheezing Folic Acid (Folic Acid) 1 mg PO DAILY [facility] Last Admin: 04/02/17 10:00 Dose: 1 mg Heparin Sodium (Porcine) (Heparin) 5,000 units SC Q12 [facility] Last Admin: 04/02/17 10:01 Dose: 5,000 units Insulin Aspart (Novolog) 0 unit SC ACHS [facility] PRN Reason: Protocol Last Admin: 04/02/17 12:28 Dose: 4 unit Losartan Potassium (Cozaar) 50 mg PO DAILY [facility] Last Admin: 04/02/17 10:02 Dose: 50 mg Metformin HCl (Glucophage) 500 mg PO BIDCC [facility] Last Admin: 04/02/17 08:40 Dose: 500 mg Methotrexate (Methotrexate) 15 mg PO QWK [facility] Last Admin: 04/01/17 09:37 Dose: 15 mg Methylprednisolone (Solu-Medrol) 80 mg IVP DAILY [facility] Last Admin: 04/02/17 10:01 Dose: 80 mg Oxycodone/Acetaminophen (Percocet 5/325 Mg Tab) 1 tab PO Q4H PRN PRN Reason: Pain, moderate (4-7) Stop: 04/04/17 16:14 Last Admin: 04/01/17 18:44 Dose: 1 tab Pantoprazole Sodium (Protonix Ec Tab) 40 mg PO DAILY [facility] Last Admin: 04/02/17 10:01 Dose: 40 mg Sitagliptin Phosphate (Januvia) 50 mg PO DAILY [facility] Last Admin: 04/02/17 10:01 Dose: 50 mg - Labs Labs: 04/02/17 08:13 PT 12.0 SECONDS (9.7-12.2) 03/30/17 15:22 INR 1.1 03/30/17 15:22 APTT 33 SECONDS (21-34) 03/30/17 15:22 - Constitutional Appears: Non-toxic - Respiratory Exam Respiratory Exam: NORMAL BREATHING PATTERN - Cardiovascular Exam Cardiovascular Exam: REGULAR RHYTHM. absent: Murmur - Extremities Exam Extremities Exam: Joint Swelling (knees) Assessment and Plan - Assessment and Plan (Free Text) Assessment: A 76 year old female DM, HTN rheumatoid arthritis flare up on iv steroid now Plan: follow up with rhematology taper iv steroid
--- NOTE | 2017-04-02 13:32 | CP.PCM.CON ---
History of Present Illness - History of Present Illness History of Present Illness: ID: 76 yo young appearing icelandic woman CC: severe bilateral knee pain and rstricted ROM L>r HPI- pt documented Rheumatoid arthritis presents with sever pain and rstricted ROM both knees L>R pt has been unavle to ambulate x last 1 month Pt is candidtae for TKR and we strongly recomment accomplishment of same dequan to prevent cotracture and oinjability to ambulate in the future Please refer to the admiting notes of Dr Betancur and Dr Bellamy Past Patient History - Infectious Disease Hx of Infectious Diseases: None - Tetanus Immunizations Tetanus Immunization: Unknown - Past Medical History & Family History Past Medical History?: Yes - Past Social History Smoking Status: Never Smoked Chewing Tobacco Use: No Cigar Use: No Alcohol: None Drugs: Denies Home Situation {Lives}: Alone Domestic Violence: Negative - CARDIAC Hx Hypertension: Yes - PULMONARY Hx Pulmonary Embolism: No Hx Sleep Apnea: No - NEUROLOGICAL Hx Neurological Disorder: No - HEENT Hx HEENT Problems: No - RENAL Hx Chronic Kidney Disease: No - ENDOCRINE/METABOLIC Hx Diabetes Mellitus Type 2: Yes - HEMATOLOGICAL/ONCOLOGICAL Hx Blood Disorders: No - INTEGUMENTARY Hx Dermatological Problems: No - MUSCULOSKELETAL/RHEUMATOLOGICAL Hx Arthritis: Yes (BACK) Hx Rheumatoid Arthritis: Yes (SH, KNEES) - GASTROINTESTINAL Hx Gastrointestinal Disorders: No - GENITOURINARY/GYNECOLOGICAL Hx Genitourinary Disorders: No - PSYCHIATRIC Hx Substance Use: No - SURGICAL HISTORY Hx Surgeries: No - ANESTHESIA Hx Anesthesia: No Hx Anesthesia Reactions: No Meds Allergies/Adverse Reactions: Allergies Allergy/AdvReac Type Severity Reaction Status Date / Time No Known Allergies Allergy Verified 03/30/17 13:50 - Medications Medications: Current Medications Acetaminophen (Tylenol 325mg Tab) 650 mg PO Q6 PRN PRN Reason: Pain, moderate (4-7) Albuterol (Ventolin Hfa 90 Mcg/Actuation (8 G)) 1 puff INH RQ6 PRN PRN Reason: Wheezing Folic Acid (Folic Acid) 1 mg PO DAILY [facility] Last Admin: 04/02/17 10:00 Dose: 1 mg Heparin Sodium (Porcine) (Heparin) 5,000 units SC Q12 [facility] Last Admin: 04/02/17 10:01 Dose: 5,000 units Insulin Aspart (Novolog) 0 unit SC ACHS [facility] PRN Reason: Protocol Last Admin: 04/02/17 12:28 Dose: 4 unit Losartan Potassium (Cozaar) 50 mg PO DAILY [facility] Last Admin: 04/02/17 10:02 Dose: 50 mg Metformin HCl (Glucophage) 500 mg PO BIDCC [facility] Last Admin: 04/02/17 08:40 Dose: 500 mg Methotrexate (Methotrexate) 15 mg PO QWK [facility] Last Admin: 04/01/17 09:37 Dose: 15 mg Methylprednisolone (Solu-Medrol) 80 mg IVP DAILY [facility] Last Admin: 04/02/17 10:01 Dose: 80 mg Oxycodone/Acetaminophen (Percocet 5/325 Mg Tab) 1 tab PO Q4H PRN PRN Reason: Pain, moderate (4-7) Stop: 04/04/17 16:14 Last Admin: 04/01/17 18:44 Dose: 1 tab Pantoprazole Sodium (Protonix Ec Tab) 40 mg PO DAILY [facility] Last Admin: 04/02/17 10:01 Dose: 40 mg Sitagliptin Phosphate (Januvia) 50 mg PO DAILY [facility] Last Admin: 04/02/17 10:01 Dose: 50 mg Physical Exam - Additional Findings Additional findings: Physical exam: sytemic exam- stigmata of Rheumatoid arthreitis Musculoskeletal: stance / gait- defrred pt unable to ambulayre 2nd to svere pain and rsticted ROM both knees L>R + bilateral effusion/+ tewnderness tricompartmentally ROM both hips restricted pts position at bedrest has pillows behind both knees ROM both hips restricted Results - Vital Signs Recent Vital Signs: Last Vital Signs Temp 97.6 F 04/02/17 07:37 Pulse 73 04/02/17 07:37 Resp 20 04/02/17 07:37 BP 125/75 04/02/17 07:37 Pulse Ox 97 04/02/17 07:37 - Labs Result Diagrams: 04/02/17 08:13 03/31/17 07:09 Labs: Laboratory Results - last 24 hr 04/01/17 04/01/17 04/02/17 16:32 21:19 07:09 WBC RBC Hgb Hct MCV MCH MCHC RDW Plt Count MPV Neut % (Auto) Lymph % (Auto) Simpson % (Auto) Eos % (Auto) Baso % (Auto) Neut # Lymph # Simpson # Eos # Baso # ESR POC Glucose (mg/dL) 251 H 363 H 312 H C-React Prot High Sens 04/02/17 04/02/17 04/02/17 08:13 08:13 11:22 WBC 11.1 H RBC 3.62 L Hgb 10.6 L Hct 31.5 L MCV 87.2 MCH 29.3 MCHC 33.6 RDW 13.1 Plt Count 467 H MPV 7.2 Neut % (Auto) 84.5 H Lymph % (Auto) 13.3 L Simpson % (Auto) 2.2 Eos % (Auto) 0.0 Baso % (Auto) 0.0 Neut # 9.4 H Lymph # 1.5 Simpson # 0.2 Eos # 0.0 Baso # 0.0 ESR 33 H POC Glucose (mg/dL) 263 H C-React Prot High Sens 13.49 H - Impressions Impression: Imaging Xrays both knees reveal severe "burned otu" rheumatoid arthiris both knees Rheumatoid arthritis bilateral hips aswell Assessment & Plan - Assessment and Plan (Free Text) Assessment: P- recomment sequential TKR l first then 3-4 wks later R Pros /cons risk and beenfits dicussed at length with pt A- bilateral Rheu,matoid arthritis (knees) with supoerimposed bilateral osteoarthritis
[2017-04-03 07:55] VITALS: BP 110/69
--- NOTE | 2017-04-03 07:55 | CP.PCM.PN ---
Subjective - Date & Time of Evaluation Date of Evaluation: 04/03/17 Time of Evaluation: 08:17 - Subjective Subjective: Patient states pain is better after initiation of steroids. States left knee is worse than left. Dr. Quevedo at bedside. Objective - Vital Signs/Intake and Output Vital Signs (last 24 hours): Temp Pulse Resp BP Pulse Ox 97.4 F L 72 20 152/76 H 96 04/03/17 07:43 04/03/17 07:43 04/03/17 07:43 04/03/17 07:43 04/03/17 07:43 - Medications Medications: Current Medications Acetaminophen (Tylenol 325mg Tab) 650 mg PO Q6 PRN PRN Reason: Pain, moderate (4-7) Albuterol (Ventolin Hfa 90 Mcg/Actuation (8 G)) 1 puff INH RQ6 PRN PRN Reason: Wheezing Folic Acid (Folic Acid) 1 mg PO DAILY [facility] Last Admin: 04/02/17 10:00 Dose: 1 mg Heparin Sodium (Porcine) (Heparin) 5,000 units SC Q12 [facility] Last Admin: 04/02/17 21:20 Dose: 5,000 units Insulin Aspart (Novolog) 0 unit SC ACHS [facility] PRN Reason: Protocol Last Admin: 04/02/17 22:44 Dose: Not Given Losartan Potassium (Cozaar) 50 mg PO DAILY [facility] Last Admin: 04/02/17 10:02 Dose: 50 mg Metformin HCl (Glucophage) 500 mg PO BIDCC [facility] Last Admin: 04/02/17 17:24 Dose: 500 mg Methotrexate (Methotrexate) 15 mg PO QWK [facility] Last Admin: 04/01/17 09:37 Dose: 15 mg Methylprednisolone (Solu-Medrol) 80 mg IVP DAILY [facility] Last Admin: 04/02/17 10:01 Dose: 80 mg Oxycodone/Acetaminophen (Percocet 5/325 Mg Tab) 1 tab PO Q4H PRN PRN Reason: Pain, moderate (4-7) Stop: 04/04/17 16:14 Last Admin: 04/01/17 18:44 Dose: 1 tab Pantoprazole Sodium (Protonix Ec Tab) 40 mg PO DAILY [facility] Last Admin: 04/02/17 10:01 Dose: 40 mg Sitagliptin Phosphate (Januvia) 50 mg PO DAILY [facility] Last Admin: 04/02/17 10:01 Dose: 50 mg - Labs Labs: 04/02/17 08:13 PT 12.0 SECONDS (9.7-12.2) 03/30/17 15:22 INR 1.1 03/30/17 15:22 APTT 33 SECONDS (21-34) 03/30/17 15:22 - Constitutional Appears: Well, No Acute Distress - Extremities Exam Additional comments: B knee: no erythema, mild effusions. Comfortable. +ROM ankle/toes, sensation intact Assessment and Plan (1) Rheumatoid arthritis involving knee Assessment & Plan: Acute rhematoid flare Indicated for TKR, plan left TKR (more symptomatic) and then right approx [address] Sahu Case discussed with Dr. Quevedo, recommends completing course of high dose steroids , and f/u as outpatient for elective TKR after resolution of flare due to increased risk of infection due to steroids Recommend improved BS control prior to TKR patient given follow up information d/w Dr. Sahu Status: Acute (2) Degenerative arthritis of left knee Status: Chronic (3) Degenerative joint disease of knee, right Status: Chronic Radiology Interpretation - Radiology Interpretation #2 Interpretation: Patient Name / ID : DAVY MICHELE / [id number] Exam Date : 03/30/2017 15:26:19 ( Approved ) Study Comment : Sex / Age : F / [id number] Creator : Ayala Quiroz V. Dictator : Ayala Quiroz V. Face Man : Emergency Dispatch Operator : Ayala Quiroz V. Approver2 : Report Date : 03/30/2017 16:46:20 My Comment : PROCEDURE: Bilateral Knee Radiographs. HISTORY: c/o bilat knee pain COMPARISON: None. FINDINGS: BONES: Right Knee: Diffuse osteophytosis. No fracture. Left Knee: Diffuse osteophytosis. No fracture. JOINTS: Right Knee: osteoarthritis. Left knee: osteoarthritis. SOFT TISSUES: Right Knee: Normal. Left Knee: Normal. JOINT EFFUSION: Right Knee: Yes Left Knee: Yes OTHER FINDINGS: None. IMPRESSION: Tricompartmental joint space narrowing in each knee. Findings are most pronounced in the right knee. The right medial femoral tibial and right patellofemoral joint space narrowing osteophytosis is most pronounced. Bilateral suprapatellar joint effusions suggested. No fracture noted
[2017-04-03] MEDS: (Novolog) Insulin Aspart, Recombinant 100 u/ml 10 ml vial SC SCH ×2 (08:05→11:47)
--- NOTE | 2017-04-03 08:11 | CP.PCM.PN ---
Subjective - Date & Time of Evaluation Date of Evaluation: 04/03/17 Time of Evaluation: 08:09 - Subjective Subjective: knee pain less can walk several steps Objective - Vital Signs/Intake and Output Vital Signs (last 24 hours): Temp Pulse Resp BP Pulse Ox 97.8 F 62 20 110/69 95 04/03/17 07:53 04/03/17 07:53 04/03/17 07:53 04/03/17 07:53 04/03/17 07:53 - Medications Medications: Current Medications Acetaminophen (Tylenol 325mg Tab) 650 mg PO Q6 PRN PRN Reason: Pain, moderate (4-7) Albuterol (Ventolin Hfa 90 Mcg/Actuation (8 G)) 1 puff INH RQ6 PRN PRN Reason: Wheezing Folic Acid (Folic Acid) 1 mg PO DAILY [facility] Last Admin: 04/02/17 10:00 Dose: 1 mg Heparin Sodium (Porcine) (Heparin) 5,000 units SC Q12 [facility] Last Admin: 04/02/17 21:20 Dose: 5,000 units Insulin Aspart (Novolog) 0 unit SC ACHS [facility] PRN Reason: Protocol Last Admin: 04/03/17 08:05 Dose: Not Given Losartan Potassium (Cozaar) 50 mg PO DAILY [facility] Last Admin: 04/02/17 10:02 Dose: 50 mg Metformin HCl (Glucophage) 500 mg PO BIDCC [facility] Last Admin: 04/02/17 17:24 Dose: 500 mg Methotrexate (Methotrexate) 15 mg PO QWK [facility] Last Admin: 04/01/17 09:37 Dose: 15 mg Methylprednisolone (Solu-Medrol) 80 mg IVP DAILY [facility] Last Admin: 04/02/17 10:01 Dose: 80 mg Oxycodone/Acetaminophen (Percocet 5/325 Mg Tab) 1 tab PO Q4H PRN PRN Reason: Pain, moderate (4-7) Stop: 04/04/17 16:14 Last Admin: 04/01/17 18:44 Dose: 1 tab Pantoprazole Sodium (Protonix Ec Tab) 40 mg PO DAILY [facility] Last Admin: 04/02/17 10:01 Dose: 40 mg Sitagliptin Phosphate (Januvia) 50 mg PO DAILY [facility] Last Admin: 04/02/17 10:01 Dose: 50 mg - Labs Labs: 04/02/17 08:13 PT 12.0 SECONDS (9.7-12.2) 03/30/17 15:22 INR 1.1 03/30/17 15:22 APTT 33 SECONDS (21-34) 03/30/17 15:22 - Head Exam Head Exam: NORMAL INSPECTION - Respiratory Exam Respiratory Exam: NORMAL BREATHING PATTERN - Cardiovascular Exam Cardiovascular Exam: REGULAR RHYTHM - Extremities Exam Extremities Exam: Joint Swelling Assessment and Plan - Assessment and Plan (Free Text) Assessment: RA flare up DM HTN osteo-arthritis Plan: as per Orthopedics, She needs knee replacement GEORGE. follow up with Rheumatology consult today
[2017-04-03] MEDS: MethylPREDNISolone 40 mg Vial IVP SCH (10:22)
[2017-04-03] MEDS: Pantoprazole 40 mg EC Tab PO SCH (10:22)
--- NOTE | 2017-04-03 10:28 | CT ---
CT bilateral knees History: Knee pain. Comparison: None available. Technique: Axial computed tomographic images of the bilateral knees were performed without the use of intravenous contrast. Subsequently, sagittal and coronal reformatted images were obtained. This CT exam was performed using one or more of the following dose reduction techniques: Automated exposure control, adjustment of the mA and/or kV according to patient size, and/or use of iterative reconstruction technique. Findings: Right knee: Severe medial compartment joint space narrowing of the femorotibial joint space with subchondral sclerosis, subchondral cyst formation, and prominent osteophytosis. Milder lateral compartment joint space narrowing of the femorotibial joint space with osteophytosis. Small loose osteochondral bodies noted at the anterior aspect of the femorotibial joint space near the intercondylar notch measuring 5 and 3 millimeters respectively. Severe patellofemoral compartment joint space narrowing with associated subchondral sclerosis and osteophytosis. Associated subchondral cyst formation. Moderate suprapatellar joint effusion. Enthesopathic change at the superior bony patella. No evidence of acute displaced fracture or dislocation. Lateral subluxation of the patella. Left knee: Severe medial compartment joint space narrowing of the femorotibial joint space with subchondral sclerosis, subchondral cyst formation, and osteophytosis. Milder lateral compartment joint space narrowing with osteophytosis. Lateral subluxation of the patella. No evidence acute displaced fracture or dislocation. Severe patellofemoral compartment joint space narrowing with subchondral sclerosis and osteophytosis. Small to moderate suprapatellar joint effusion. Impression: Prominent degenerative changes of the bilateral knees as described above with bilateral suprapatellar joint effusions. No evidence of acute displaced fracture or dislocation. If pain persists, consider MRI. These findings were preliminarily reported at 7:06 p.m. on 04/02/[address] Renato Renteria from [facility] [employer].
[2017-04-03] MEDS: Oxycodone/Acetaminophen 5/325 mg Tab PO PRN (14:58)
--- NOTE | 2017-04-03 15:42 | CP.PCM.PN ---
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 myers regarding management of RA , cannot start new treatment without quantiferon test result - still pending (Lab called states will take up to 7 days ) D/W Dr. Betancur, Pt can be discharged home today and f/u with Dr. Betancur office next week - pending quantiferon test result Dr. Betancur discussed Discharge plan with patient Patient on percocet for pain control , will discharge patient with percocet for 5 days and patient will follow with Dr. Betancur office RX given for prednisone and percocet Objective - Vital Signs/Intake and Output Vital Signs (last 24 hours): Temp Pulse Resp BP Pulse Ox 97.8 F 73 20 110/69 99 04/03/17 07:53 04/03/17 12:51 04/03/17 07:53 04/03/17 07:53 04/03/17 14:55 - Medications Medications: Current Medications Acetaminophen (Tylenol 325mg Tab) 650 mg PO Q6 PRN PRN Reason: Pain, moderate (4-7) Albuterol (Ventolin Hfa 90 Mcg/Actuation (8 G)) 1 puff INH RQ6 PRN PRN Reason: Wheezing Folic Acid (Folic Acid) 1 mg PO DAILY [facility] Last Admin: 04/03/17 10:22 Dose: 1 mg Heparin Sodium (Porcine) (Heparin) 5,000 units SC Q12 [facility] Last Admin: 04/03/17 10:22 Dose: 5,000 units Insulin Aspart (Novolog) 0 unit SC ACHS [facility] PRN Reason: Protocol Last Admin: 04/03/17 11:47 Dose: Not Given Losartan Potassium (Cozaar) 50 mg PO DAILY [facility] Last Admin: 04/03/17 10:22 Dose: 50 mg Metformin HCl (Glucophage) 500 mg PO BIDCC [facility] Last Admin: 04/03/17 08:33 Dose: 500 mg Methotrexate (Methotrexate) 15 mg PO QWK [facility] Last Admin: 04/01/17 09:37 Dose: 15 mg Methylprednisolone (Solu-Medrol) 80 mg IVP DAILY [facility] Last Admin: 04/03/17 10:22 Dose: 80 mg Oxycodone/Acetaminophen (Percocet 5/325 Mg Tab) 1 tab PO Q4H PRN PRN Reason: Pain, moderate (4-7) Stop: 04/04/17 16:14 Last Admin: 04/03/17 14:58 Dose: 1 tab Pantoprazole Sodium (Protonix Ec Tab) 40 mg PO DAILY [facility] Last Admin: 04/03/17 10:22 Dose: 40 mg Sitagliptin Phosphate (Januvia) 50 mg PO DAILY [facility] Last Admin: 04/03/17 10:23 Dose: 50 mg - Labs Labs: 04/02/17 08:13 PT 12.0 SECONDS (9.7-12.2) 03/30/17 15:22 INR 1.1 03/30/17 15:22 APTT 33 SECONDS (21-34) 03/30/17 15:22
[2017-04-03 16:56] VITALS: PULSE 91; TEMP 97.9; O2SAT 96
[2017-04-03 19:38] LABS: Interpretation Negative (Negative); RNP Interpretation Negative (Negative)
[2017-04-04 16:23] LABS: CCP IGG >250 Units (<20)
== END 2017-04-03 17:00 | disposition home or self-care (01) | DRG 547 ==
LOC: C.ER 13:36 → C.9E 17:12 → C.3T 18:02 → OBSVTOIN 04-01 12:27
PROVIDERS: ADMIT Internal Medicine; ATTEND Internal Medicine
DX: M06.9 Rheumatoid arthritis, unspecified (principal); E11.9 Type 2 diabetes mellitus without complications; I10 Essential (primary) hypertension; M17.0 Bilateral primary osteoarthritis of knee; M47.9 Spondylosis, unspecified; M25.462 Effusion, left knee; M25.461 Effusion, right knee; E78.00 Pure hypercholesterolemia, unspecified; I25.10 Atherosclerotic heart disease of native coronary artery without angina pectoris; E78.5 Hyperlipidemia, unspecified; F32.9 Major depressive disorder, single episode, unspecified; Z79.4 Long term (current) use of insulin

== ENCOUNTER 2017-04-18 15:20 | Inpatient (IN) | payer MEDICARE, MEDICAID ==
[2017-04-18 15:20] VITALS: BMI 26.5
--- NOTE | 2017-04-18 18:03 | C.PDOC ---
History Of Present Illness 76 y/o female presents to the ED for evaluation of right knee pain. Patient is sent by Dr. Quevedo for prescreen for total right knee replacement surgery by Dr. edouard due to arthritis. Otherwise, denies any sensory changes, fever, chills, or any other associated symptoms at this time. Time Seen by Provider: 04/18/17 17:42 Chief Complaint (Nursing): Lower Extremity Problem/Injury History Per: Patient History/Exam Limitations: no limitations Onset/Duration Of Symptoms: Days Current Symptoms Are (Timing): Still Present Severity: Moderate Recent travel outside of the [place]: No Additional History Per: Patient Past Medical History Reviewed: Historical Data, Nursing Documentation, Vital Signs Vital Signs: Last Vital Signs Temp 97.4 F L 04/18/17 19:02 Pulse 90 04/18/17 19:02 Resp 20 04/18/17 19:02 BP 131/81 04/18/17 19:02 Pulse Ox 99 04/18/17 19:02 - Medical History PMH: Arthritis, Diabetes, HTN, Hypercholesterolemia, Rheumatoid Arthritis Denies: Pulmonary Embolism, Chronic Kidney Disease, Sleep Apnea - [facility] Procedures ESOPHAGOGASTRODUODENOSCOPY [EGD] W/CLOSED BIOPSY (01/17/00) Family History: States: No Known Family Hx - Social History Hx Tobacco Use: No Hx Alcohol Use: No Hx Substance Use: No - Immunization History Hx Tetanus Toxoid Vaccination: No Hx Influenza Vaccination: No Hx Pneumococcal Vaccination: No Review Of Systems Except As Marked, All Systems Reviewed And Found Negative. Constitutional: Negative for: Fever, Chills Cardiovascular: Negative for: Chest Pain, Palpitations Respiratory: Negative for: Shortness of Breath Musculoskeletal: Positive for: Leg Pain (right knee) Skin: Negative for: Rash, Bruising Neurological: Negative for: Weakness, Numbness Physical Exam - Physical Exam Appears: Non-toxic, No Acute Distress, Other ( female) Skin: Normal Color, Warm, Dry Head: Atraumatic, Normacephalic Eye(s): bilateral: Normal Inspection Oral Mucosa: Moist Neck: Normal ROM, Supple Cardiovascular: Rhythm Regular, No Murmur Respiratory: Normal Breath Sounds, No Rales, No Rhonchi, No Wheezing Gastrointestinal/Abdominal: Soft, No Tenderness Extremity: Normal ROM, Other (arthritis knobby right knee) Neurological/Psych: Oriented x3, Normal Speech ED Course And Treatment - Laboratory Results Result Diagrams: 04/18/17 19:02 04/18/17 19:02 ECG: Interpreted By Me ECG Rhythm: Sinus Rhythm ECG Interpretation: Normal Rate From EC O2 Sat by Pulse Oximetry: 97 (RA) Pulse Ox Interpretation: Normal - Radiology CXR: Interpreted by Me CXR Interpretation: Yes: No Acute Disease - Other Rad c-spine PA/lat X-Ray: Interpreted by Me (neg) Reevaluation Time: 19:23 Reassessment Condition: Improved (comfortable, calm) - Physician Consult Information Outcome Of Conversation: 1745: d/w jomar Jones to Admit. 1800: d/w Dr. India hadley to CT R knee on the floor Medical Decision Making Medical Decision Making: Spoke to Dr. America Quevedo at 5:45pm, jomar to admit plan for TKR R tomorrow. Disposition Doctor Will See Patient In The: Hospital Counseled Patient/Family Regarding: Studies Performed, Diagnosis - Disposition Disposition: HOME/ ROUTINE Disposition Time: 19:24 Condition: GOOD - Clinical Impression Clinical Impression: Degenerative joint disease of knee, right - Scribe Statement The provider has reviewed the documentation as recorded by the Laurenibmika Hernandez All medical record entries made by the Laurenibmika were at my direction and personally dictated by me. I have reviewed the chart and agree that the record accurately reflects my personal performance of the history, physical exam, medical decision making, and the department course for this patient. I have also personally directed, reviewed, and agree with the discharge instructions and disposition.
[2017-04-18 19:06] LABS: HEMATOCRIT 33.4 % (34.0-47.0); MEAN CELL VOLUME 88.2 fL (81.0-99.0); MEAN CORPUSCULAR HEMOGLOBIN 29.4 pg (27.0-31.0); MEAN CORPUSCULAR HGB CONC 33.3 g/dL (33.0-37.0); MEAN PLATELET VOLUME 6.6 fL (7.2-11.7); RED CELL DISTRIBUTION WIDTH 14.1 % (11.5-14.5); WHITE BLOOD COUNT 5.9 K/uL (4.8-10.8)
[2017-04-18 19:14] LABS: INR 0.9; RBC URINE < 1 /hpf (0-3); TRANSITIONAL EPITHIAL < 1 /hpf (0-3); URINE BACTERIA RARE (<OCC); URINE BILIRUBIN NEGATIVE (NEGATIVE); URINE BLOOD NEGATIVE (NEGATIVE); URINE COLOR Yellow (YELLOW); URINE GLUCOSE (UA) NORMAL (Normal); URINE KETONE NEGATIVE (NEGATIVE); URINE LEUKOCYTE ESTERASE NEGATIVE Leu/uL (Negative); URINE PROTEIN NEGATIVE (NEGATIVE); URINE UROBILINOGEN NORMAL mg/dL (0.2-1.0); WBC URINE 2 /hpf (0-5)
[2017-04-18 19:15] LABS: CHLORIDE 100 mmol/L (98-107); POTASSIUM 4.6 mmol/L (3.6-5.2); SODIUM 140 mmol/L (132-148)
[2017-04-18 19:18] LABS: ALB/GLOB RATIO 1.1 (1.0-2.1); ALKALINE PHOSPHATASE 60 U/L (38-126); ALT/SGPT 24 U/L (9-52); AST/SGOT 16 U/L (14-36); BILIRUBIN,TOTAL 0.4 mg/dL (0.2-1.3); BLOOD UREA NITROGEN 8 mg/dL (7-17); CALCIUM 9.1 mg/dl (8.6-10.4); CARBON DIOXIDE 29 mmol/L (22-30); GFR AFRICAN-AMERICAN > 60; GLUCOSE,RANDOM 120 mg/dL (65-105); TOTAL PROTEIN 6.2 g/dL (6.3-8.3)
--- NOTE | 2017-04-19 07:56 | CP.PCM.HP ---
History of Present Illness - History of Present Illness History of Present Illness: A 76 year old female with history of rheumatoid arthritis, diabetes, hypertension, osteoarthritis came for preop for total knee replacement. She has severe worsening knee pain and walking difficulty for the last two months. Last month she was admitted for a flare up of rheumatoid arthritis. Orthopedic consult by Dr. Sahu recommended total knee replacement for severe osteo- arthritis. She denies any fever, cough, chest pain, shortness of breath, headache, nausea or vomiting. Present on Admission - Present on Admission Any Indicators Present on Admission: No History of DVT/PE: No History of Uncontrolled Diabetes: No Urinary Catheter: No Decubitus Ulcer Present: No Review of Systems - Constitutional Constitutional: absent: Anorexia, Weight Loss, Weakness - Cardiovascular Cardiovascular: absent: Chest Pain - Respiratory Respiratory: absent: Dyspnea - Gastrointestinal Gastrointestinal: absent: Nausea, Vomiting Past Patient History - Infectious Disease Hx of Infectious Diseases: None - Tetanus Immunizations Tetanus Immunization: Unknown - Past Medical History & Family History Past Medical History?: Yes - Past Social History Smoking Status: Never Smoked - CARDIAC Hx Cardiac Disorders: Yes Hx Hypercholesterolemia: Yes Hx Hypertension: Yes - PULMONARY Hx Respiratory Disorders: No Hx Pulmonary Embolism: No Hx Sleep Apnea: No - NEUROLOGICAL Hx Neurological Disorder: No - HEENT Hx HEENT Problems: Yes Hx Cataracts: Yes (s/p Sx B/L) Hx Glaucoma: Yes - RENAL Hx Chronic Kidney Disease: No - ENDOCRINE/METABOLIC Hx Endocrine Disorders: Yes Hx Diabetes Mellitus Type 2: Yes - HEMATOLOGICAL/ONCOLOGICAL Hx Blood Disorders: No - INTEGUMENTARY Hx Dermatological Problems: No - MUSCULOSKELETAL/RHEUMATOLOGICAL Hx Musculoskeletal Disorders: Yes Hx Arthritis: Yes Hx Falls: No Hx Rheumatoid Arthritis: Yes Other/Comment: B/L knee pain - GASTROINTESTINAL Hx Gastrointestinal Disorders: No - GENITOURINARY/GYNECOLOGICAL Hx Genitourinary Disorders: No - PSYCHIATRIC Hx Psychophysiologic Disorder: No Hx Substance Use: No - SURGICAL HISTORY Hx Surgeries: No - ANESTHESIA Hx Anesthesia: Yes Hx Anesthesia Reactions: No Meds Allergies/Adverse Reactions: Allergies Allergy/AdvReac Type Severity Reaction Status Date / Time No Known Allergies Allergy Verified 04/18/17 15:28 Physical Exam - Constitutional Appears: No Acute Distress - Respiratory Exam Respiratory Exam: Clear to Auscultation Bilateral, NORMAL BREATHING PATTERN - Cardiovascular Exam Cardiovascular Exam: REGULAR RHYTHM. absent: Systolic Murmur - GI/Abdominal Exam GI & Abdominal Exam: Normal Bowel Sounds, Soft - Extremities Exam Extremities exam: Positive for: joint swelling (knee joints with tenderness, limitation of motion of both knee joints) Results - Vital Signs Recent Vital Signs: Last Vital Signs Temp 97.9 F 04/18/17 23:25 Pulse 87 04/18/17 23:25 Resp 20 04/18/17 23:25 BP 113/71 04/18/17 23:25 Pulse Ox 97 04/18/17 23:25 - Labs Result Diagrams: 04/18/17 19:02 04/18/17 19:02 Labs: Laboratory Results - last 24 hr 04/18/17 04/18/17 04/18/17 19:02 19:02 19:02 WBC 5.9 RBC 3.78 L Hgb 11.1 Hct 33.4 L MCV 88.2 MCH 29.4 MCHC 33.3 RDW 14.1 Plt Count 342 D MPV 6.6 L PT 10.2 INR 0.9 APTT 34 Sodium Potassium Chloride Carbon Dioxide Anion Gap BUN Creatinine Est GFR ( Amer) Est GFR (Non-Af Amer) POC Glucose (mg/dL) Random Glucose Calcium Total Bilirubin AST ALT Alkaline Phosphatase Total Protein Albumin Globulin Albumin/Globulin Ratio Urine Color Yellow Urine Clarity Hazy Urine pH 7.0 Ur Specific [place] 1.006 Urine Protein Negative Urine Glucose (UA) Normal Urine Ketones Negative Urine Blood Negative Urine Nitrate Negative Urine Bilirubin Negative Urine Urobilinogen Normal Ur Leukocyte Esterase Negative Urine WBC (Auto) 2 Urine RBC (Auto) < 1 Ur Squamous Epith Cells < 1 Ur Transition Epith Cell < 1 Urine Bacteria Rare Blood Type Blood Type Confirm Antibody Screen 04/18/17 04/18/17 04/18/17 19:02 19:02 21:04 WBC RBC Hgb Hct MCV MCH MCHC RDW Plt Count MPV PT INR APTT Sodium 140 Potassium 4.6 Chloride 100 Carbon Dioxide 29 Anion Gap 16 BUN 8 Creatinine 0.6 L Est GFR ( Amer) > 60 Est GFR (Non-Af Amer) > 60 POC Glucose (mg/dL) 108 Random Glucose 120 H Calcium 9.1 Total Bilirubin 0.4 AST 16 ALT 24 Alkaline Phosphatase 60 Total Protein 6.2 L Albumin 3.3 L Globulin 2.9 Albumin/Globulin Ratio 1.1 Urine Color Urine Clarity Urine pH Ur Specific [place] Urine Protein Urine Glucose (UA) Urine Ketones Urine Blood Urine Nitrate Urine Bilirubin Urine Urobilinogen Ur Leukocyte Esterase Urine WBC (Auto) Urine RBC (Auto) Ur Squamous Epith Cells Ur Transition Epith Cell Urine Bacteria Blood Type AB POSITIVE Blood Type Confirm AB POSITIVE Antibody Screen Negative 04/19/17 06:29 WBC RBC Hgb Hct MCV MCH MCHC RDW Plt Count MPV PT INR APTT Sodium Potassium Chloride Carbon Dioxide Anion Gap BUN Creatinine Est GFR ( Amer) Est GFR (Non-Af Amer) POC Glucose (mg/dL) 165 H Random Glucose Calcium Total Bilirubin AST ALT Alkaline Phosphatase Total Protein Albumin Globulin Albumin/Globulin Ratio Urine Color Urine Clarity Urine pH Ur Specific [place] Urine Protein Urine Glucose (UA) Urine Ketones Urine Blood Urine Nitrate Urine Bilirubin Urine Urobilinogen Ur Leukocyte Esterase Urine WBC (Auto) Urine RBC (Auto) Ur Squamous Epith Cells Ur Transition Epith Cell Urine Bacteria Blood Type Blood Type Confirm Antibody Screen Assessment & Plan - Assessment and Plan (Free Text) Assessment: A 76 year old female with RA, knee OA, DM, HTN for right total knee replacement orthopedic consult is on board Plan: total knee replacement today scheduled. BP and DM care postop rehab DVT prophylaxis - Date & Time Date: 04/19/17 Time: 08:00 Decision To Admit - Pt Status Changed To: Hospital Disposition Of: Inpatient - Admit Certification Admit to Inpatient:: After my assessment, the patient will require hospitalization for at least two midnights. This is because of the severity of symptoms shown, intensity of services needed, and/or the medical risk in this patient being treated as an outpatient. - InPatient: Physician Admission Certification:: as ordered - . Bed Request Type: Regular Admitting Physician: Maday Quevedo
[2017-04-19 08:04] LABS: BASO % 0.2 % (0.0-2.0); EOS # 0.2 K/uL (0.0-0.7); EOS % 3.9 % (0.0-4.0); LYMPH % 33.4 % (20.0-40.0); MEAN CORPUSCULAR HEMOGLOBIN 29.5 pg (27.0-31.0); MEAN CORPUSCULAR HGB CONC 33.6 g/dL (33.0-37.0); MEAN PLATELET VOLUME 6.9 fL (7.2-11.7); MONO # 0.6 K/uL (0.0-0.8); MONO % 10.3 % (0.0-10.0); RED CELL DISTRIBUTION WIDTH 14.1 % (11.5-14.5); WHITE BLOOD COUNT 6.1 K/uL (4.8-10.8)
[2017-04-19] MEDS: Sodium Chloride 0.9% 1,000 ML IV SCH (08:17)
[2017-04-19 08:29] LABS: CHLORIDE 104 mmol/L (98-107); POTASSIUM 4.3 mmol/L (3.6-5.2); SODIUM 140 mmol/L (132-148)
[2017-04-19 08:31] LABS: BILIRUBIN,TOTAL 0.4 mg/dL (0.2-1.3); GFR AFRICAN-AMERICAN > 60
[2017-04-19 08:32] LABS: ALB/GLOB RATIO 1.1 (1.0-2.1); ALKALINE PHOSPHATASE 70 U/L (38-126); ALT/SGPT 24 U/L (9-52); AST/SGOT 15 U/L (14-36); BLOOD UREA NITROGEN 8 mg/dL (7-17); CARBON DIOXIDE 26 mmol/L (22-30); GLUCOSE,RANDOM 145 mg/dL (65-105); TOTAL PROTEIN 5.7 g/dL (6.3-8.3)
[2017-04-19 08:33] LABS: CALCIUM 8.5 mg/dl (8.6-10.4)
--- NOTE | 2017-04-19 09:38 | CP.PCM.PN ---
Subjective - Date & Time of Evaluation Date of Evaluation: 04/19/17 Time of Evaluation: 09:31 - Subjective Subjective: Patient complains of continued right knee pain, has difficulty walking, has failed conservative management and elected for total knee replacement. Objective - Vital Signs/Intake and Output Vital Signs (last 24 hours): Temp Pulse Resp BP Pulse Ox 98.1 F 106 H 20 153/97 H 96 04/19/17 07:45 04/19/17 07:45 04/19/17 07:45 04/19/17 07:45 04/19/17 07:45 Intake and Output: 04/19/17 04/19/17 06:59 18:59 Intake Total 0 Balance 0 - Medications Medications: Current Medications Acetaminophen (Tylenol 325mg Tab) 650 mg PO Q6 PRN PRN Reason: Pain, moderate (4-7) Enoxaparin Sodium (Lovenox) 40 mg SC DAILY [facility] Sodium Chloride (Sodium Chloride 0.9%) 1,000 mls @ 80 mls/hr IV .[id number] [facility] Last Admin: 04/19/17 08:17 Dose: 80 mls/hr Insulin Human Regular (Novolin R) 0 unit SC ACHS [facility] PRN Reason: Protocol Lisinopril (Zestril) 5 mg PO DAILY [facility] Morphine Sulfate (Morphine) 1 mg IVP Q6 PRN PRN Reason: Pain, moderate (4-7) Pantoprazole Sodium (Protonix Ec Tab) 40 mg PO DAILY [facility] - Labs Labs: 04/19/17 07:54 04/19/17 07:54 PT 10.2 SECONDS (9.7-12.2) 04/18/17 19:02 INR 0.9 04/18/17 19:02 APTT 34 SECONDS (21-34) 04/18/17 19:02 - Extremities Exam Additional comments: Right knee: +joint effusion. no erythema, minimally warm. +ROM calves soft NT neg homans +DP/PT pulses, sensation intact. Assessment and Plan (1) Degenerative joint disease of knee, right Assessment & Plan: NPO for TKR T&C labs and CXR reviewed d/w Dr. Sahu, agrees with above Status: Chronic (2) Rheumatoid arthritis involving knee Assessment & Plan: see above Status: Chronic (3) Abnormal CXR Assessment & Plan: stable 3mm RUL granuloma, no change SINCE 06/2015 Indeterminate quantiferon gold TB test last visit (ordered by Dr. Bellamy last admission) defer to Dr. Quevedo Status: Chronic
--- NOTE | 2017-04-19 10:37 | RAD ---
HISTORY: adm for TKR COMPARISON: Chest radiographs 07/01/2015 and 03/30/2017 TECHNIQUE: Chest PA and lateral FINDINGS: LUNGS: No active pulmonary disease. Small calcified granuloma is again seen the right apex laterally. PLEURA: No significant pleural effusion identified. No pneumothorax apparent. CARDIOVASCULAR: Cardiac size appears upper limits normal. No pulmonary vascular derangement identified. Crowding of the bronchovascular markings appreciate the right medial base. OSSEOUS STRUCTURES: No significant abnormalities. VISUALIZED UPPER ABDOMEN: Normal. OTHER FINDINGS: None. IMPRESSION: No acute cardiopulmonary disease is identified. No significant interval change 07/01/2015 and 03/30/2017.
--- NOTE | 2017-04-19 10:51 | RAD ---
PROCEDURE: Cervical Spine Radiographs. HISTORY: Pain. COMPARISON: None. FINDINGS: BONES: The cervical curvature is a minimally interrupted by grade 1 spondylolisthesis C3-4 with C3 slightly posterior C4 by a couple mm, likely on a degenerative basis. No definite fracture is identified. C1-2 articulation appears normal. The odontoid process is intact. DISC SPACES: Mild height loss identified at C3-4 and C5-6 with osteophytes appear prominent at C5-6 and mild at C3-4. SOFT TISSUES: Normal. No prevertebral soft tissue swelling. OTHER FINDINGS: No suspicious lytic or blastic change. Facet arthropathy is identified at the inferior cervical spine. IMPRESSION: Limited likely degenerative grade 1 spondylolisthesis at C3-4. Mild multilevel cervical spondylosis with prominent facet joint arthropathy at the inferior cervical spine.
[2017-04-19] MEDS: (Novolin R) Insulin Human Regular 100 units/ml vial SC SCH ×3 (11:51→22:12)
[2017-04-19] MEDS ORDERED: Bupivacaine Liposomal Inj 20 ml INFIL ONE (12:35)
[2017-04-19] MEDS ORDERED: Bacitracin 150,000 UNIT in Sodium Chloride 0.9% Irrig 3,000 ML IR SCH (12:35)
[2017-04-19] MEDS ORDERED: Lactated Ringer's 1,000 ML IV ONE ×2 (12:44→15:30)
[2017-04-19] MEDS ORDERED: ceFAZolin IV 2 gm in Dextrose 1 GM/50 ML BAG IVPB ONE (12:45)
[2017-04-19] MEDS ORDERED: Propofol 10 mg/ml Inj (20 ML) ONE (12:46)
[2017-04-19] MEDS ORDERED: Midazolam 2 MG/2 ML VIAL ONE (12:46)
[2017-04-19] MEDS ORDERED: Rocuronium 10 mg/ml (10 ml) ONE (13:03)
[2017-04-19] MEDS ORDERED: Sodium Chloride 0.9% 60 ML IV ONE (13:19)
[2017-04-19] MEDS ORDERED: Morphine 4 MG/ML VIAL ONE ×2 (13:38→15:37)
--- NOTE | 2017-04-19 13:44 | RAD ---
PROCEDURE: Right Knee Radiographs. HISTORY: COMPARISON: Bilateral knee radiographs performed 03/30/17, CT knee without contrast bilateral performed 04/02/17 FINDINGS: BONES: No acute displaced fracture. Degenerative changes including tricompartmental joint space narrowing. JOINTS: No dislocation. JOINT EFFUSION: Moderate suprapatellar joint effusion. OTHER FINDINGS: None. IMPRESSION: Moderate suprapatellar joint effusion. Degenerative changes including tricompartmental narrowing.
[2017-04-19] MEDS ORDERED: Nitroglycerin 2% Ointment Foilpak UD TOP ONE (14:07)
[2017-04-19] MEDS ORDERED: Nitroglycerin 50mg in D5W 50 MG/250 ML BOTTLE IV ONE (14:07)
[2017-04-19] MEDS ORDERED: Neostigmine Methylsulfate 3mg/3ml Syringe IV ONE (15:00)
[2017-04-19] MEDS ORDERED: HYDROmorphone 0.5 mg/0.5 ml ISec IVP PRN (15:53)
--- NOTE | 2017-04-19 15:57 | PCM.SURG1 ---
Surgeon's Initial Post Op Note - Surgeon's Notes Surgeon: Rufus Sahu MD Refrigeration Insulator: Donovan Duenas PA-C, CRNA, 3rd yr med student Type of Anesthesia: General Endo Anesthesia Administered By: Dr. Freeman Pre-Operative Diagnosis: Right knee DJD, RA Operative Findings: Tourniquet: 79 min @ 350mmHg Post-Operative Diagnosis: same Operation Performed: 1. Right total knee replacement. 2. anterior and posterior synovectomies. 3. Posterior capsular release. 4. Patellar retinacular release. 5. Computer navigation Specimen/Specimens Removed: bone and synovium Estimated Blood Loss: EBL {In ML}: 65 Blood Products Given: N/A Drains Used: No Drains Post-Op Condition: Fair Date of Surgery/Procedure: 04/19/17 Time of Surgery/Procedure: 15:57
[2017-04-19] MEDS ORDERED: Bupivacaine HCl 0.25% PF (10 ml) Inj ONE (16:03)
--- NOTE | 2017-04-19 16:20 | PCM.ANESB7 ---
Adductor Canal Block - Adductor Canal Block Procedure Performed: Adductor Canal Block Right - Procedure Adductor Canal Block: The procedure was explained to the patient that it is for the post-operative pain management. Consent was obtained after a thorough discussion with the patient regarding the benefits and possible complications of local anesthetic adductor canal block of the femoral nerve. Standard monitors, as defined by the ASA, were applied to the patient. Time-out was held with the circulating nurse to confirm the appropriate block. After applying supplemental oxygen and administering IV Sedation as needed, the patient was placed in supine position with and the operative leg was flexed slightly at the knee and externally rotated as needed, and was kept anatomically stable. The mid-thigh of the ___ lower extremity was exposed. The ultrasound transducer was then applied transversely along the medial aspect, about midway down the thigh and the femoral artery and vein were identified in appropriate relation with the sartorius muscle. At this time, the femoral nerve was visualized lateral to the femoral artery within the canal. After thorough identification, this area area was prepped with Chloroprep solution three times and 1 % Lidocaine was injected subcutaneously for topical anesthesia. At this point, a #22 gauge Stimuplex 4-inch needle was inserted in-plane in a [id number] orientation, and advanced toward the femoral nerve. Advancement was performed carefully under direct ultrasound visualization. After negative aspiration, cc of % was injected and this was followed with __18____ cc of ____0.25___ % __bupivacaine _. Under ultrasound guidance the local anesthetics were observed spreading around the femoral nerve. The needle was removed intact and sterile dressing was applied. The patient had stable vital signs, was conscious and in no apparent distress. The patient tolerated the femoral nerve block well with stable vital signs and good pain relief
--- NOTE | 2017-04-19 16:20 | RAD ---
PROCEDURE: Right Knee Radiographs. HISTORY: s/p TKR, pt in PACU COMPARISON: Right knee radiographs 04/19/2017. FINDINGS: BONES: Patient is now seen to be status post total knee replacement with distal femoral and proximal tibial hardware in adequate apparent position. Postop changes seen the anterior knee soft tissues including skin wesley. No suspicious lytic or blastic change at this time. JOINTS: As above. JOINT EFFUSION: As above. OTHER FINDINGS: None. IMPRESSION: Interval right knee replacement as discussed above. Hardware appears in adequate position.
[2017-04-19] MEDS ORDERED: Sodium Chloride 0.9% 1,000 ML IV ONE (17:15)
[2017-04-19] MEDS: ceFAZolin IV 2 gm in Dextrose 2 GM/100 ML BAG IVPB SCH (18:38)
--- NOTE | 2017-04-19 19:17 | CARD ---
APPROVED REPORT EKG Measurement Heart [id number] <Conclusion> Normal sinus rhythm Normal ECG
[2017-04-20] MEDS: ceFAZolin IV 2 gm in Dextrose 2 GM/100 ML BAG IVPB SCH (02:58)
[2017-04-20] MEDS: Sodium Chloride 0.9% 1,000 ML IV SCH (05:39)
--- NOTE | 2017-04-20 07:25 | CP.PCM.PN ---
Subjective - Date & Time of Evaluation Date of Evaluation: 04/20/17 Time of Evaluation: 07:21 - Subjective Subjective: Patient states she feels good, pain controlled. No chest pain Objective - Vital Signs/Intake and Output Vital Signs (last 24 hours): Temp Pulse Resp BP Pulse Ox 98.9 F 80 18 110/69 98 04/20/17 04:00 04/20/17 04:00 04/20/17 04:00 04/20/17 04:00 04/20/17 04:00 - Medications Medications: Current Medications Acetaminophen (Tylenol 325mg Tab) 650 mg PO Q6 PRN PRN Reason: Pain, moderate (4-7) Docusate Sodium (Colace) 100 mg PO BID [facility] Last Admin: 04/19/17 18:37 Dose: Not Given Enoxaparin Sodium (Lovenox) 40 mg SC Q24H [facility] Sodium Chloride (Sodium Chloride 0.9%) 1,000 mls @ 80 mls/hr IV .[id number] [facility] Last Admin: 04/20/17 05:39 Dose: 80 mls/hr Insulin Human Regular (Novolin R) 0 unit SC ACHS [facility] PRN Reason: Protocol Last Admin: 04/19/17 22:12 Dose: Not Given Lisinopril (Zestril) 5 mg PO DAILY [facility] Morphine Sulfate (Morphine) 2 mg IVP Q4 PRN PRN Reason: Pain, moderate (4-7) Last Admin: 04/20/17 06:15 Dose: 2 mg Ondansetron HCl (Zofran Inj) 4 mg IVP Q6H PRN PRN Reason: Nausea/Vomiting Oxycodone/Acetaminophen (Percocet 5/325 Mg Tab) 1 tab PO Q4 PRN PRN Reason: Pain, moderate (4-7) Stop: 04/22/17 15:44 Pantoprazole Sodium (Protonix Ec Tab) 40 mg PO DAILY [facility] - Labs Labs: 04/19/17 07:54 04/19/17 07:54 PT 10.2 SECONDS (9.7-12.2) 04/18/17 19:02 INR 0.9 04/18/17 19:02 APTT 34 SECONDS (21-34) 04/18/17 19:02 - Extremities Exam Additional comments: RLE: on CPM, +ROM ankle DF/PF, toes flex/ext, sensation intact, +DP pulse, calves soft NT neg homans, leonora intact. Tolerating 50 degrees on CPM. Assessment and Plan (1) Degenerative joint disease of knee, right Assessment & Plan: POD#1 s/p right TKR -PT/OT -d/c planning -CPM -Lovenox ordered by Dr. Cullen. Dr. Sahu uses 81mg PO BID for VTE proph after TKR, however since DR. Cullen ordered lovenox, that order was moved to 23 hours post op to prevent bleeding. -d/w Dr. Sahu, agrees with above Status: Chronic (2) Rheumatoid arthritis involving knee Status: Chronic (3) Abnormal CXR Assessment & Plan: f/u prn as per Dr. cullen Status: Chronic
[2017-04-20 07:49] LABS: HEMATOCRIT 27.2 % (34.0-47.0); MEAN CELL VOLUME 87.7 fL (81.0-99.0); MEAN CORPUSCULAR HEMOGLOBIN 29.1 pg (27.0-31.0); MEAN CORPUSCULAR HGB CONC 33.1 g/dL (33.0-37.0); MEAN PLATELET VOLUME 6.9 fL (7.2-11.7); RED CELL DISTRIBUTION WIDTH 13.8 % (11.5-14.5); WHITE BLOOD COUNT 7.1 K/uL (4.8-10.8)
[2017-04-20] MEDS: (Novolin R) Insulin Human Regular 100 units/ml vial SC SCH ×4 (08:09→21:49)
--- NOTE | 2017-04-20 08:16 | CP.PCM.PN ---
Subjective - Date & Time of Evaluation Date of Evaluation: 04/20/17 Time of Evaluation: 08:14 - Subjective Subjective: postop pain on right knee could not urinate Objective - Vital Signs/Intake and Output Vital Signs (last 24 hours): Temp Pulse Resp BP Pulse Ox 98.9 F 80 18 110/69 98 04/20/17 04:00 04/20/17 04:00 04/20/17 04:00 04/20/17 04:00 04/20/17 04:00 - Medications Medications: Current Medications Acetaminophen (Tylenol 325mg Tab) 650 mg PO Q6 PRN PRN Reason: Pain, moderate (4-7) Docusate Sodium (Colace) 100 mg PO BID [facility] Last Admin: 04/19/17 18:37 Dose: Not Given Enoxaparin Sodium (Lovenox) 40 mg SC Q24H [facility] Insulin Human Regular (Novolin R) 0 unit SC ACHS [facility] PRN Reason: Protocol Last Admin: 04/20/17 08:09 Dose: 1 unit Lisinopril (Zestril) 5 mg PO DAILY [facility] Morphine Sulfate (Morphine) 2 mg IVP Q4 PRN PRN Reason: Pain, moderate (4-7) Last Admin: 04/20/17 06:15 Dose: 2 mg Ondansetron HCl (Zofran Inj) 4 mg IVP Q6H PRN PRN Reason: Nausea/Vomiting Oxycodone/Acetaminophen (Percocet 5/325 Mg Tab) 1 tab PO Q4 PRN PRN Reason: Pain, moderate (4-7) Stop: 04/22/17 15:44 Pantoprazole Sodium (Protonix Ec Tab) 40 mg PO DAILY [facility] - Labs Labs: 04/20/17 07:33 04/19/17 07:54 PT 10.2 SECONDS (9.7-12.2) 04/18/17 19:02 INR 0.9 04/18/17 19:02 APTT 34 SECONDS (21-34) 04/18/17 19:02 - Constitutional Appears: No Acute Distress (puffy face) - Respiratory Exam Respiratory Exam: Clear to Ausculation Bilateral - Cardiovascular Exam Cardiovascular Exam: REGULAR RHYTHM. absent: Murmur - Extremities Exam Extremities Exam: absent: Pedal Edema (postop status of right knee) Assessment and Plan - Assessment and Plan (Free Text) Assessment: degenerative disease of right knee s/p right TKA pod 1 day DM, HTN, RA bladder atony due to the effect of anesthesia or pain medicines (morphine) Plan: PT/OT possible discharge to rehab DM control VTE prophylaxis
[2017-04-20 08:37] LABS: BLOOD UREA NITROGEN 10 mg/dL (7-17); CALCIUM 7.6 mg/dl (8.6-10.4); CARBON DIOXIDE 28 mmol/L (22-30); CHLORIDE 98 mmol/L (98-107); GFR AFRICAN-AMERICAN > 60; GLUCOSE,RANDOM 174 mg/dL (65-105); POTASSIUM 4.3 mmol/L (3.6-5.2); SODIUM 132 mmol/L (132-148)
[2017-04-20] MEDS: Pantoprazole 40 mg EC Tab PO SCH (09:34)
[2017-04-20] MEDS ORDERED: Enoxaparin 40 mg Syringe SC SCH (10:00)
--- NOTE | 2017-04-20 10:24 | OP ---
PROCEDURE DATE: 04/19/2017 PREOPERATIVE DIAGNOSIS: Inflammatory arthritis of the right knee/degenerative joint disease right knee. POSTOPERATIVE DIAGNOSES: 1. Inflammatory arthritis of the right knee/degenerative joint disease, right knee. 2. Inflammatory anterior and posterior synovitis. 3. Posterior capsular contracture. 4. Lateral patellar retinacular contracture. PROCEDURE: 1. Right total knee replacement arthroplasty. 2. Anterior and posterior synovectomy. 3. Posterior capsular release. 4. Lateral patellar retinacular release. 5. Computer navigation. SURGEON: Saeed Sahu MD CRAPS MANAGER: . SECOND SURVEILLANCE SENSOR OFFICER: JESSICA Vegas THIRD SURVEILLANCE SENSOR OFFICER: Amilcar, third year medical student. TYPE OF ANESTHESIA: Spinal general anesthesia. ANESTHESIA ADMINISTERED BY: Simon Freeman MD ESTIMATED BLOOD LOSS: Approximately 85 mL COMPLICATIONS: None. BLOOD PRODUCTS: None. DRAINS: None. POSTOPERATIVE CONDITION: Stable. POSTOPERATIVE X-RAYS: Excellent position of the construct. OPERATIVE INDICATION: is a patient of Dr. Quevedo, who presents with severe arthritis of the knee. Pros and cons, risks and benefits of surgical approach discussed. The possibility of mechanical failure, infection, thromboembolic disease, secondary or tertiary surgery is discussed. The patient and wished the surgery to be accomplished. Medical clearance is offered by Dr. Quevedo. Again through the artillery maintenance supervisor via [employer], the possibility of mechanical failure, infection, thromboembolic disease, secondary or tertiary surgery is discussed. The patient wished the surgery to be accomplished and in fact wants to know how quickly she can get the left knee done. DESCRIPTION OF PROCEDURE: After having obtained informed consent in the above fashion, after having identified side, site and procedure and a , after the satisfactory induction of the anesthetic, the patient identified as in the supine position with all bony prominence well padded, the right lower extremity is prepped and draped in usual fashion for lower extremity surgery. The tourniquet had been applied and inflated. After exsanguinating the limb using a 6-inch Esmarch bandage, the tourniquet which had been was inflated to 350 mmHg. The 6-inch straight midline approach is laid to the knee. The skin incision is carried out through the skin, subcutaneous tissue. Hemostasis controlled with electrocautery . Medial arthrotomy is accomplished. The patella was everted. The knee is flexed. Dissection is carried around posterior medially to the direct head of the semimembranosus tendon. The tibia is dislocated anteriorly and the initial osteotomy is accomplished on the tibial side. Computer navigation at this point in time. Anterior and posterior cruciate ligaments were excised. Medial and lateral meniscectomies were accomplished. The iliotibial band in the lateral aspect of the tibia is released. accomplished. The anterior for accelerometer/computer navigation is affixed to the anterior aspect of the tibia. Stylet was placed in the area of the anterior cruciate ligament insertion posterior aspect accomplished. were corrected. The lower extremities . The medial malleolus is and lateral malleolus is 0 degrees, varus and valgus 3 degrees, posterior . The tibial osteotomies accomplished successfully at a depth approximately 2 mm below the more involved deformed side. accomplished. The proximal tibia was prepared rotation of the lateral aspect of the tibial condyle medial third of the tibial tuberosity. The proximal tibia was punched and prepared. Attention was turned to the femur. osteophytes were debrided. The pin was placed above the interchondral notch for the distal femoral cutting guide support. The exsanguinated accomplished. The distal femoral cutting guide is affixed to the distal aspect of the femur. The accelerometer was placed for computer navigation as well as the sensor. The offset is measured above the anterior aspect of the femur. This was entered. Computer navigation at this point is found. The distal cut is set to 0 degrees varus and valgus and 0.5 degrees flexion. The distal cut is accomplished 10 mm from the condyle. Distal osteotomy is accomplished and at this point in time anterior and posterior #2 femoral component. A #2 femoral component is employed. Anterior and posterior osteotomies are accomplished. Chamfer cuts were accomplished. At this point in time, lamina inspector tester sorter is placed posterior capsular contracture. Posterior capsular is released. Anterior and posterior synovectomies were accomplished. Lateral patellar retinaculum is released. At this point in time, the femoral trials applied. The tibia and the 12 mm poly flexion extension gap is found to be measured and equal and the bowel was found to be excellent. There was signs of the evidence of a lateral patellar contracture. A lateral patellar retinaculum is released and the attention is turned to the patella. The patella girth was 29 mm, free hand patella osteotomies accomplished. The patella is reamed, the 32 mm patella. At this point in time, the flexion extension balance, patella balance was found to be excellent. The wound was sterilely irrigated. The femur, tibia, and patella repaired. The #2 cemented femoral component is . The #2 cemented tibial tray 12 mm polyethylene and 32 mm patella cemented. Flexion extension balance is excellent and the patella balance is excellent. The wound is thoroughly irrigated. The tourniquet is deflated. is placed in the posterior capsule and in the gutters. layers #2 Quill, with #1 Vicryl for the arthrotomy followed by 0 Quill, 2-0 Vicryl wesley for skin, Kwame Grigsby compression dressing and knee mobilizers applied. Postoperative x-rays reveal excellent position in construct. Saeed Sahu MD
[2017-04-20] MEDS: Oxycodone/Acetaminophen 5/325 mg Tab PO PRN (11:02)
[2017-04-20] MEDS: Enoxaparin 40 mg Syringe SC SCH (14:24)
[2017-04-20] MEDS: ceFAZolin IV 1 gm in Dextrose 1 GM/50 ML BAG IVPB SCH (21:48)
[2017-04-21] MEDS: ceFAZolin IV 1 gm in Dextrose 1 GM/50 ML BAG IVPB SCH ×3 (01:03→17:37)
[2017-04-21 06:16] LABS: HEMATOCRIT 25.7 % (34.0-47.0); MEAN CELL VOLUME 86.8 fL (81.0-99.0); MEAN CORPUSCULAR HEMOGLOBIN 29.7 pg (27.0-31.0); MEAN CORPUSCULAR HGB CONC 34.3 g/dL (33.0-37.0); MEAN PLATELET VOLUME 6.6 fL (7.2-11.7); RED CELL DISTRIBUTION WIDTH 13.8 % (11.5-14.5); WHITE BLOOD COUNT 8.1 K/uL (4.8-10.8)
[2017-04-21 06:23] LABS: BLOOD UREA NITROGEN 5 mg/dL (7-17); CALCIUM 7.6 mg/dl (8.6-10.4); CARBON DIOXIDE 23 mmol/L (22-30); CHLORIDE 98 mmol/L (98-107); GFR AFRICAN-AMERICAN > 60; GLUCOSE,RANDOM 201 mg/dL (65-105); POTASSIUM 3.6 mmol/L (3.6-5.2); SODIUM 128 mmol/L (132-148)
--- NOTE | 2017-04-21 08:25 | CP.PCM.PN ---
Subjective - Date & Time of Evaluation Date of Evaluation: 04/21/17 Time of Evaluation: 08:23 - Subjective Subjective: postop knee pain fever yesterday of 102 urinary incontinence POD #2 Objective - Vital Signs/Intake and Output Vital Signs (last 24 hours): Temp Pulse Resp BP Pulse Ox 98.1 F 95 H 18 133/72 97 04/20/17 23:35 04/20/17 23:35 04/20/17 23:35 04/20/17 23:35 04/20/17 23:35 - Medications Medications: Current Medications Acetaminophen (Tylenol 325mg Tab) 650 mg PO Q6 PRN PRN Reason: Pain, moderate (4-7) Acetaminophen (Tylenol 325mg Tab) 650 mg PO Q6 PRN PRN Reason: Fever >100.4 F Last Admin: 04/20/17 17:52 Dose: 650 mg Docusate Sodium (Colace) 100 mg PO BID [facility] Last Admin: 04/20/17 17:52 Dose: 100 mg Enoxaparin Sodium (Lovenox) 40 mg SC Q24H [facility] Last Admin: 04/20/17 14:24 Dose: 40 mg Cefazolin Sodium/Dextrose (Ancef Iv 1 Gm Duplex) 1 gm in 50 mls @ 100 mls/hr IVPB Q8H [facility] Last Admin: 04/21/17 01:03 Dose: 100 mls/hr Insulin Human Regular (Novolin R) 0 unit SC ACHS [facility] PRN Reason: Protocol Last Admin: 04/20/17 21:49 Dose: Not Given Lisinopril (Zestril) 5 mg PO DAILY [facility] Last Admin: 04/20/17 09:34 Dose: 5 mg Morphine Sulfate (Morphine) 2 mg IVP Q4 PRN PRN Reason: Pain, moderate (4-7) Last Admin: 04/20/17 14:24 Dose: 2 mg Ondansetron HCl (Zofran Inj) 4 mg IVP Q6H PRN PRN Reason: Nausea/Vomiting Oxycodone/Acetaminophen (Percocet 5/325 Mg Tab) 1 tab PO Q4 PRN PRN Reason: Pain, moderate (4-7) Stop: 04/22/17 15:44 Last Admin: 04/20/17 11:02 Dose: 1 tab Pantoprazole Sodium (Protonix Ec Tab) 40 mg PO DAILY [facility] Last Admin: 04/20/17 09:34 Dose: 40 mg - Labs Labs: 04/21/17 06:02 04/21/17 06:02 PT 10.2 SECONDS (9.7-12.2) 04/18/17 19:02 INR 0.9 04/18/17 19:02 APTT 34 SECONDS (21-34) 04/18/17 19:02 - Constitutional Appears: No Acute Distress - Respiratory Exam Respiratory Exam: Clear to Ausculation Bilateral, NORMAL BREATHING PATTERN - Cardiovascular Exam Cardiovascular Exam: REGULAR RHYTHM - Extremities Exam Extremities Exam: Normal Inspection (right knee post-op status) Assessment and Plan - Assessment and Plan (Free Text) Assessment: s/p right TKR degenerative OA, knees, RA, DM, HTN urinary incontinence due to pain medicines ? Plan: continue postop care PT/OT continue iv antibiotics chest PT
[2017-04-21 08:37] VITALS: RESP 20
[2017-04-21] MEDS: (Novolin R) Insulin Human Regular 100 units/ml vial SC SCH ×4 (08:37→21:38)
[2017-04-21] MEDS: Pantoprazole 40 mg EC Tab PO SCH (09:12)
--- NOTE | 2017-04-21 13:55 | CP.PCM.PN ---
Subjective - Date & Time of Evaluation Date of Evaluation: 04/21/17 Time of Evaluation: 13:50 - Subjective Subjective: Patient states knee pain is well controlled. Observed ambulating with PT, tolerating very well. No CP/SOB/dizziness. Objective - Vital Signs/Intake and Output Vital Signs (last 24 hours): Temp Pulse Resp BP Pulse Ox 99.2 F 99 H 20 143/79 97 04/21/17 07:00 04/21/17 07:00 04/21/17 07:00 04/21/17 07:00 04/21/17 07:00 - Medications Medications: Current Medications Acetaminophen (Tylenol 325mg Tab) 650 mg PO Q6 PRN PRN Reason: Pain, moderate (4-7) Acetaminophen (Tylenol 325mg Tab) 650 mg PO Q6 PRN PRN Reason: Fever >100.4 F Last Admin: 04/20/17 17:52 Dose: 650 mg Docusate Sodium (Colace) 100 mg PO BID [facility] Last Admin: 04/21/17 09:12 Dose: 100 mg Enoxaparin Sodium (Lovenox) 40 mg SC Q24H [facility] Last Admin: 04/20/17 14:24 Dose: 40 mg Cefazolin Sodium/Dextrose (Ancef Iv 1 Gm Duplex) 1 gm in 50 mls @ 100 mls/hr IVPB Q8H [facility] Last Admin: 04/21/17 08:39 Dose: 100 mls/hr Insulin Human Regular (Novolin R) 0 unit SC ACHS [facility] PRN Reason: Protocol Last Admin: 04/21/17 12:13 Dose: 2 unit Lisinopril (Zestril) 5 mg PO DAILY [facility] Last Admin: 04/21/17 09:12 Dose: 5 mg Morphine Sulfate (Morphine) 2 mg IVP Q4 PRN PRN Reason: Pain, moderate (4-7) Last Admin: 04/21/17 11:06 Dose: 2 mg Ondansetron HCl (Zofran Inj) 4 mg IVP Q6H PRN PRN Reason: Nausea/Vomiting Oxycodone/Acetaminophen (Percocet 5/325 Mg Tab) 1 tab PO Q4 PRN PRN Reason: Pain, moderate (4-7) Stop: 04/22/17 15:44 Last Admin: 04/20/17 11:02 Dose: 1 tab Pantoprazole Sodium (Protonix Ec Tab) 40 mg PO DAILY [facility] Last Admin: 04/21/17 09:12 Dose: 40 mg - Labs Labs: 04/21/17 06:02 04/21/17 06:02 PT 10.2 SECONDS (9.7-12.2) 04/18/17 19:02 INR 0.9 04/18/17 19:02 APTT 34 SECONDS (21-34) 04/18/17 19:02 - Extremities Exam Additional comments: R knee: dressing changed. Small amount sang drainage on bandage. No erythema, mild swelling only to knee. Calves soft NT neg homans, +DP/PT pulses. Assessment and Plan (1) Degenerative joint disease of knee, right Assessment & Plan: POD# 2 s/p right TKR -PT/OT/CPM/OOB/IS -Tmax 102, septic workup by Dr. Cullen -orthopedically stable for d/c to rehab per Dr. Sahu, plan d/c 04/22 if afebrile -VTE proph lovenox per Dr. Cullen -encourage OOB -patient to f/u Dr. Sahu in 10-14 days, call for appointment -dressing to right knee must be removed on 04/26, dry sterile dressing to be reapplied until dry -WBAT -Cont PT -d/w Dr. Sahu, agrees with above Status: Chronic (2) Rheumatoid arthritis involving knee Assessment & Plan: see above Status: Chronic (3) Abnormal CXR Assessment & Plan: work up prn defer to Dr. cullen Status: Chronic
[2017-04-21] MEDS: Enoxaparin 40 mg Syringe SC SCH (14:19)
[2017-04-21] MEDS: Oxycodone/Acetaminophen 5/325 mg Tab PO PRN (22:24)
[2017-04-22 00:42] VITALS: O2SAT 97
[2017-04-22] MEDS: ceFAZolin IV 1 gm in Dextrose 1 GM/50 ML BAG IVPB SCH ×2 (01:30→10:09)
[2017-04-22] MEDS: (Novolin R) Insulin Human Regular 100 units/ml vial SC SCH ×2 (08:27→12:58)
[2017-04-22 08:38] VITALS: BP 109/68; PULSE 89; TEMP 98.8
--- NOTE | 2017-04-22 08:39 | CP.PCM.PN ---
Subjective - Date & Time of Evaluation Date of Evaluation: 04/22/17 Time of Evaluation: 08:36 - Subjective Subjective: postoperative right knee pain afebrile yesterday Objective - Vital Signs/Intake and Output Vital Signs (last 24 hours): Temp Pulse Resp BP Pulse Ox 98.7 F 96 H 20 99/93 H 97 04/21/17 23:30 04/21/17 23:30 04/21/17 23:30 04/21/17 23:30 04/21/17 23:30 - Medications Medications: Current Medications Acetaminophen (Tylenol 325mg Tab) 650 mg PO Q6 PRN PRN Reason: Pain, moderate (4-7) Acetaminophen (Tylenol 325mg Tab) 650 mg PO Q6 PRN PRN Reason: Fever >100.4 F Last Admin: 04/20/17 17:52 Dose: 650 mg Docusate Sodium (Colace) 100 mg PO BID [facility] Last Admin: 04/21/17 17:36 Dose: 100 mg Enoxaparin Sodium (Lovenox) 40 mg SC Q24H [facility] Last Admin: 04/21/17 14:19 Dose: 40 mg Cefazolin Sodium/Dextrose (Ancef Iv 1 Gm Duplex) 1 gm in 50 mls @ 100 mls/hr IVPB Q8H [facility] Last Admin: 04/22/17 01:30 Dose: 100 mls/hr Insulin Human Regular (Novolin R) 0 unit SC ACHS [facility] PRN Reason: Protocol Last Admin: 04/22/17 08:27 Dose: 3 unit Lisinopril (Zestril) 5 mg PO DAILY [facility] Last Admin: 04/21/17 09:12 Dose: 5 mg Morphine Sulfate (Morphine) 2 mg IVP Q4 PRN PRN Reason: Pain, moderate (4-7) Last Admin: 04/21/17 11:06 Dose: 2 mg Ondansetron HCl (Zofran Inj) 4 mg IVP Q6H PRN PRN Reason: Nausea/Vomiting Oxycodone/Acetaminophen (Percocet 5/325 Mg Tab) 1 tab PO Q4 PRN PRN Reason: Pain, moderate (4-7) Stop: 04/22/17 15:44 Last Admin: 04/21/17 22:24 Dose: 1 tab Pantoprazole Sodium (Protonix Ec Tab) 40 mg PO DAILY [facility] Last Admin: 04/21/17 09:12 Dose: 40 mg - Labs Labs: 04/21/17 06:02 04/21/17 06:02 PT 10.2 SECONDS (9.7-12.2) 04/18/17 19:02 INR 0.9 04/18/17 19:02 APTT 34 SECONDS (21-34) 04/18/17 19:02 - Constitutional Appears: No Acute Distress - Respiratory Exam Respiratory Exam: Clear to Ausculation Bilateral, NORMAL BREATHING PATTERN - Cardiovascular Exam Cardiovascular Exam: REGULAR RHYTHM. absent: Murmur - GI/Abdominal Exam GI & Abdominal Exam: Soft. absent: Tenderness - Extremities Exam Extremities Exam: absent: Normal Inspection (right knee on dressing) Assessment and Plan - Assessment and Plan (Free Text) Assessment: s/p right TKR afebrile RA DM HTN As per orthopedics, patient can be discharged to rehab. Plan: discharge patient to subacute rehab today as per orthopedics, remove knee dressing on 04/26 and follow up with Dr. Sahu in 10-14 days
[2017-04-22] MEDS: Pantoprazole 40 mg EC Tab PO SCH (10:09)
[2017-04-22] MEDS: Oxycodone/Acetaminophen 5/325 mg Tab PO PRN (14:53)
== END 2017-04-22 15:30 | DRG 470 ==
LOC: C.ER 15:20 → C.9E 17:45 → C.6T 18:27
PROVIDERS: ADMIT Internal Medicine; ATTEND Internal Medicine
PROC: 0SBC0ZZ Excision of Right Knee Joint, Open Approach (ICD-10-PCS; 2017-04-19)
PROC: 0MNN0ZZ Release Right Knee Bursa and Ligament, Open Approach (ICD-10-PCS; 2017-04-19)
PROC: 0SRC0J9 Replacement of Right Knee Joint with Synthetic Substitute, Cemented, Open Approach (ICD-10-PCS; principal; 2017-04-19 13:15)
DX: M17.11 Unilateral primary osteoarthritis, right knee (principal); M06.9 Rheumatoid arthritis, unspecified; E11.9 Type 2 diabetes mellitus without complications; N31.2 Flaccid neuropathic bladder, not elsewhere classified; I10 Essential (primary) hypertension; E78.00 Pure hypercholesterolemia, unspecified; H40.9 Unspecified glaucoma; M65.9 Synovitis and tenosynovitis, unspecified; R32 Unspecified urinary incontinence